=== PATIENT | female | born 2000 | race Caucasian/White ===

== ENCOUNTER 2022-12-17 12:03 | Emergency (ER) | payer OTHER ==
[2022-12-17 12:12] VITALS: RESP 18
--- NOTE | 2022-12-17 12:40 | XR ---
EXAMINATION TYPE: XR hand complete RT DATE OF EXAM: 12/17/2022 12:31 PM INDICATION: Patient age:Female; 22 years old; Reason for study: Thumb injury; PHH. COMPARISON: None TECHNIQUE: Frontal, lateral and oblique views of the right hand were obtained. FINDINGS: Normal alignment of the visualized joints. No acute osseous pathology is identified. No e vidence of soft tissue swelling. IMPRESSION: No acute osseous pathology.
--- NOTE | 2022-12-17 13:45 | ED ---
General Adult HPI - General Chief complaint: Extremity Injury, Upper Stated complaint: rt hand injury Time Seen by Provider: 12/17/22 13:08 Source: patient, RN notes reviewed, old records reviewed Mode of arrival: ambulatory Limitations: no limitations - History of Present Illness Initial comments: Patient is a 22-year-old female who fell at work earlier today. Fell somehow onto her right hand. She is complaining of right thumb pain. Presents for further evaluation. Denies any sensory deficits. Pain with movement of the right thumb. Denies any numbness. Denies any weakness. Endorses pain with movement of the right thumb. Denies any obvious skin changes or other injuries. Presents for further evaluation at this time. - Related Data Allergies Allergy/AdvReac Type Severity Reaction Status Date / Time amoxicillin Allergy Rash/Hives Verified 12/17/22 12:12 Review of Systems ROS Statement: Those systems with pertinent positive or pertinent negative responses have been documented in the HPI. Review of Systems: CONST: Denies fever EYES: Denies blurry vision ENT: Denies nasal congestion C/V: Denies Chest pain RESP: Denies shortness of breath GI: Denies abdominal pain : Denies dysuria SKIN: Denies rash. MSK: Endorses right thumb pain NEURO: Denies headache ROS Other: All systems not noted in ROS Statement are negative. Past Medical History Past Medical History: No Reported History History of Any Multi-Drug Resistant Organisms: None Reported Past Surgical History: No Surgical Hx Reported Past Psychological History: No Psychological Hx Reported Smoking Status: Never smoker Past Alcohol Use History: None Reported Past Drug Use History: None Reported General Exam - General Exam Comments Initial Comments: General: Appears in no acute distress. HEAD: Normal with no signs of head trauma. EYES: EOMI. ENT: Hearing grossly intact. RESPIRATORY: No respiratory distress. C/V: Regular rate and rhythm. ABD: Abdomen is nondistended. EXT: No obvious deformity. Reduced range of motion secondary to pain in her neck eminence which is tender on palpation. Neurovascular intact throughout. Normal approximation with him and fingers. No obvious deformity. SKIN: No rashes or lesions observed on exposed skin. NEURO: Alert and oriented. Limitations: no limitations Course Vital Signs 12/17/22 12:09 Temperature 98.3 F Pulse Rate 88 Respiratory 18 Rate Blood Pressure 129/84 O2 Sat by Pulse 99 Oximetry Medical Decision Making - Medical Decision Making Was pt. sent in by a medical professional or institution (EZEKIEL Mascorro, BALE OPENER, urgent care, hospital, or jail...) When possible be specific @ -No Did you speak to anyone other than the patient for history (EMS, parent, family, police, friend...)? What history was obtained from this source @ -No Did you review nursing and triage notes (agree or disagree)? Why? @ -I reviewed and agree with nursing and triage notes Were old charts reviewed (outside hosp., previous admission, EMS record, old EKG, old radiological studies, urgent care reports/EKG's, jail records)? Report findings @ -No old charts were reviewed Differential Diagnosis (chest pain, altered mental status, abdominal pain women, abdominal pain men, vaginal bleeding, weakness, fever, dyspnea, syncope, headache, dizziness, GI bleed, back pain, seizure, CVA, palpatations, mental health, musculoskeletal)? @ -Differential Musculoskeletal Muscular strain, contusion, ligament sprain, fracture, arthritis, septic arthritis, bursitis, cellulitis, muscle spasm, nerve compression, DVT, arterial occlusion, herpes zoster, electrolyte abnormality, tumor.... This is not meant to be in all inclusive list EKG interpreted by me (3pts min.). @ -As above X-rays interpreted by me (1pt min.). @ -X-rays of the right hand revealed no obvious bony traumatic injury. CT interpreted by me (1pt min.). @ -None done U/S interpreted by me (1pt. min.). @ -None done What testing was considered but not performed or refused? (CT, X-rays, U/S, labs)? Why? @ -None What meds were considered but not given or refused? Why? @ -Offered analgesic medications which were declined. Did you discuss the management of the patient with other professionals (professionals i.e. EZEKIEL Mascorro, BALE OPENER, lab, RT, psych nurse, social services, wool puller, teacher, radiation safety officer, foster care case manager)? Give summary @ -No Was smoking cessation discussed for >3mins.? @ -No Was critical care preformed (if so, how long)? @ -No Were there social determinants of health that impacted care today? How? (Homelessness, low income, unemployed, alcoholism, drug addiction, transportation, low edu. Level, literacy, decrease access to med. care, [place] [facility], rehab)? @ -No Was there de-escalation of care discussed even if they declined (Discuss DNR or withdrawal of care, Hospice)? DNR status @ -No What co-morbidities impacted this encounter? (DM, HTN, Smoking, COPD, CAD, Cancer, CVA, ARF, Chemo, Hep., AIDS, mental health diagnosis, sleep apnea, morbid obesity)? @ -None Was patient admitted / discharged? Hospital course, mention meds given and route, prescriptions, significant lab abnormalities, going to OR and other pertinent info. @ -Based on the patient's presentation and physical exam, I'm concerned for possible bony trending injury to the thumb versus sprain. X-rays were obtained while the patient was in triage were negative. I discussed results patient. She'll be given a Shaheed bandage, as well as strict return precautions. Discussed [id number] analgesic medications as well as icing. I did offer Motrin which was declined. Vital signs within acceptable limits. She'll be discharged home at this time. I instructed the patient to follow up with their PCP in the next 1-3 days. I provided contact information for follow up with orthopedic. I explained that the patient should return to the emergency department if they experience any worsening symptoms. Strict return precautions were discussed with the patient. The patient expressed understanding of these instructions. I answered all questions that the patient had. The patient was discharged home in good condition with their prescriptions and follow up information. Undiagnosed new problem with uncertain prognosis? @ -No Drug Therapy requiring intensive monitoring for toxicity (Heparin, Nitro, Insulin, Cardizem)? @ -No Were any procedures done? @ -No Diagnosis/symptom? @ -Fall, right thumb strain Acute, or Chronic, or Acute on Chronic? @ -Acute Uncomplicated (without systemic symptoms) or Complicated (systemic symptoms)? @ -Uncomplicated Side effects of treatment? @ -No Exacerbation, Progression, or Severe Exacerbation? @ -No Poses a threat to life or bodily function? How? (Chest pain, [place], [place], pneumonia, PE, COPD, DKA, ARF, appy, cholecystitis, CVA, Diverticulitis, Homicidal, Suicidal, threat to staff... and all critical care pts) @ -No Disposition Clinical Impression: Sprain of right thumb Disposition: HOME SELF-CARE Condition: Good Instructions (If sedation given, give patient instructions): Finger Sprain (ED) Is patient prescribed a controlled substance at d/c from ED?: No Referrals: None,Stated [Primary Care Provider] - 1-2 days Pascual Osuna DO [Doctor of Osteopathic Medicine] - 1-2 days Time of Disposition: 13:42
[2022-12-17 14:02] VITALS: BP 113/76; PULSE 74; TEMP 97.3
== END 2022-12-17 14:02 | disposition home or self-care (01) ==
LOC: EC 12:03
DX: S63.601A Unspecified sprain of right thumb, initial encounter (principal); Z88.0 Allergy status to penicillin; W19.XXXA Unspecified fall, initial encounter; Y99.0 Civilian activity done for income or pay
CPT/HCPCS: 99283

== ENCOUNTER → 2023-01-13 | Outpatient (CLI) | payer OTHER ==
--- NOTE | 2023-01-13 09:55 | US ---
EXAMINATION TYPE: Transabdominal DATE OF EXAM: 01/13/2023 9:06 AM COMPARISON: NONE CLINICAL INDICATION: Female, 22 years old with history of [id number] CONFIRM GEST AGE; confirm dates EXAM PERFORMED: Transabdominal (TA) EXAM MEASUREMENTS: GESTATIONAL AGE / DATING Dates by LMP: (13 weeks/6 days) EDC: 07/15/2023 Dates by Current Scan for: (13 weeks/4 days) EDC: 07/17/2023 MATERNAL ANATOMY Uterus: 16.5x6.9x9.6cm Right Ovary: 3.0x1.6x1.8cm Left Ovary: 2.7x2.0x1.9cm Post CDS / Adnexa: wnl Presence of free fluid: n/a Presence of corpus luteal cyst: n/a Presence of subchorionic bleed: n/a GESTATION / SURVEY CRL: 7.52 (13 weeks/4 days) Yolk Sac (normal less than 6mm): n/a Heart Rate: 159 bpm Rhythm: Normal IUP: Viable IUP Age Appropriate Anatomy Cord Insertion: Too early to visualize Limbs: Visualized Calvarium: Visualized Date of LMP: 10/08/2022 Beta HcG (if available): Not available at this time exam slightly limited by position and body habitus IMPRESSION: Single viable intrauterine as noted above.
== END | disposition home or self-care (01) ==
LOC: RADUSWWP 08:10
PROVIDERS: ATTEND Obstetrics & Gynecology
DX: Z36.89 Encounter for other specified antenatal screening (principal); Z3A.14 14 weeks gestation of pregnancy
CPT/HCPCS: 76801

== ENCOUNTER 2023-01-24 05:14 | Emergency (ER) | payer OTHER ==
[2023-01-24] MEDS ORDERED: SODIUM CHLORIDE 0.9% 500 ML 500 ML IV ONE (05:29)
--- NOTE | 2023-01-24 06:02 | ED ---
Female Urogenital HPI <Arleth Moses - Last Filed: 01/24/23 07:46> - General Source: patient, RN notes reviewed, old records reviewed Mode of arrival: ambulatory Limitations: no limitations - History of Present Illness MD Complaint: vaginal bleeding, other (Positive for ) -: unknown Location: suprapubic Radiation: non-radiating Consistency: intermittent Improves with: none Worsens with: none Patient : Yes Associated Symptoms: vaginal bleeding <Corwin Hi - Last Filed: 01/28/23 04:19> - General Chief complaint: Vaginal Bleeding Stated complaint: 15 WEEKS WITH SPOTTING Time Seen by Provider: 01/24/23 05:23 - History of Present Illness Initial comments: This is a 22-year-old female to the emergency department today. Patient presents today for evaluation regards to vaginal bleeding. Patient is vaginal bleeding of . Spotting noted this morning. Patient became very concerned presents here. Patient is a . Patient presents today for known history of with vaginal bleeding. She has had prior ultrasound confirming (Corwin Hi) - Related Data Allergies Allergy/AdvReac Type Severity Reaction Status Date / Time amoxicillin Allergy Rash/Hives Verified 12/17/22 12:12 hydrocodone Allergy Unknown Verified 01/24/23 05:17 Penicillins Allergy Unknown Verified 01/24/23 05:17 Review of Systems ROS Other: All systems not noted in ROS Statement are negative. <Arleth Moses - Last Filed: 01/24/23 07:46> ROS Other: All systems not noted in ROS Statement are negative. <Corwin Hi - Last Filed: 01/28/23 04:19> ROS Statement: Those systems with pertinent positive or pertinent negative responses have been documented in the HPI. Past Medical History Past Medical History: No Reported History History of Any Multi-Drug Resistant Organisms: None Reported Past Surgical History: Tonsillectomy Past Psychological History: No Psychological Hx Reported Smoking Status: Never smoker Past Alcohol Use History: None Reported Past Drug Use History: None Reported <Corwin Hi - Last Filed: 01/28/23 04:19> General Exam <Arleth Moses - Last Filed: 01/24/23 07:46> Limitations: no limitations General appearance: alert, in no apparent distress Head exam: Present: atraumatic, normocephalic, normal inspection Eye exam: Present: normal appearance, PERRL, EOMI. Absent: scleral icterus, conjunctival injection, periorbital swelling ENT exam: Present: normal exam, mucous membranes moist Neck exam: Present: normal inspection. Absent: tenderness, meningismus, lymphadenopathy Respiratory exam: Present: normal lung sounds bilaterally. Absent: respiratory distress, wheezes, rales, rhonchi, stridor Cardiovascular Exam: Present: regular rate, normal rhythm, normal heart sounds. Absent: systolic murmur, diastolic murmur, rubs, gallop, clicks GI/Abdominal exam: Present: soft, normal bowel sounds. Absent: distended, tenderness, guarding, rebound, rigid Extremities exam: Present: normal inspection, full ROM, normal capillary refill. Absent: tenderness, pedal edema, joint swelling, calf tenderness Back exam: Present: normal inspection Neurological exam: Present: alert, oriented X3, CN II-XII intact Psychiatric exam: Present: normal affect, normal mood Skin exam: Present: warm, dry, intact, normal color. Absent: rash <Corwin Hi - Last Filed: 01/28/23 04:19> - General Exam Comments Initial Comments: GENERAL: No acute distress, well developed, well nourished. Obese. HEENT: Normocephalic, atraumatic. Pupils equal, round, reactive to light. Moist mucous membranes. LUNGS: No respiratory distress or use of accessory muscles. HEART: Regular rate. ABDOMEN: Non-distended. BACK: Normal inspection. EXTREMITIES: No edema. No tenderness. Moves all extremities. NEUROLOGIC: Alert & oriented x 3. CN II-XII grossly intact. PSYCHIATRIC: Normal affect and behavior. DERMATOLOGIC: Skin intact, without rashes or lesions noted. (Arleth Moses) Course <Corwin Hi - Last Filed: 01/28/23 04:19> Vital Signs 01/24/23 01/24/23 05:17 08:04 Temperature 98.2 F 97.9 F Pulse Rate 80 72 Respiratory 18 19 Rate Blood Pressure 122/72 111/59 O2 Sat by Pulse 98 100 Oximetry - Reevaluation(s) Reevaluation #1: 01/24/23 06:01 Medical record is reviewed (Corwin Hi) Reevaluation #2: 01/24/23 06:01 Patient has no significant active bleeding here in the ER what (Corwin Hi) Reevaluation #3: Patient informed results questions answered (Corwin Hi) Reevaluation #4: 01/24/23 06:01 Was pt. sent in by a medical professional or institution (EZEKIEL Mascorro, COLD MILL INSPECTOR, urgent care, hospital, or snf...) When possible be specific @ -no Did you speak to anyone other than the patient for history (EMS, parent, family, police, friend...)? What history was obtained from this source @ -no Did you review nursing and triage notes (agree or disagree)? Why? @ -agree Are old charts reviewed (outside hosp., previous admission, EMS record, old EKG, old radiological studies, urgent care reports/EKG's, snf records)? Report findings @ -yes Differential Diagnosis (chest pain, altered mental status, abdominal pain women, abdominal pain men, vaginal bleeding, weakness, fever, dyspnea, syncope, heada yojana, dizziness, GI bleed, back pain, seizure, CVA, palpatations, mental health, musculoskeletal)? @ -prior EKG interpreted by me (3pts min.). @ -no X-rays interpreted by me (1pt min.). @ -no CT interpreted by me (1pt min.). @ -no U/S interpreted by me (1pt. min.). @ -yes What testing was considered but not performed or refused? (CT, X-rays, U/S, labs)? Why? @ -none What meds were considered but not given or refused? Why? @ -none Did you discuss the management of the patient with other professionals (professionals i.e. EZEKIEL Mascorro, COLD MILL INSPECTOR, lab, RT, psych nurse, social media designer, carriage feeder, teacher, toxics program officer, egg caser)? Give summary @ -no Was smoking cessation discussed for >3mins.? @ -no Was critical care preformed (if so, how long)? @ -no Were there social determinants of health that impacted care today? How? (Homelessness, low income, unemployed, alcoholism, drug addiction, trans portation, low edu. Level, literacy, decrease access to med. care, alf, rehab)? @ -none Was there de-escalation of care discussed even if they declined (Discuss DNR or withdrawal of care, Hospice)? DNR status @ -no What co-morbidities impacted this encounter? (DM, HTN, Smoking, COPD, CAD, Cancer, CVA, ARF, Chemo, Hep., AIDS, mental health diagnosis, sleep apnea, morbid obesity)? @ -none Was patient admitted / discharged? Hospital course, mention meds given and route, prescriptions, significant lab abnormalities, going to OR and other pertinent info. @ - 22 female with abdominal pain with vaginal spotting and . Patient has IUP proven here in the ER, patient has no significant acute bleeding or pain. Patient can be discharged home Discharged Undiagnosed new problem with uncertain prognosis? @ -no Drug Therapy requiring intensive monitoring for toxicity (Heparin, Nitro, Ins ulin, Cardizem)? @ -no Were any procedures done? @ -no Diagnosis/symptom? @ -Positive IUP Acute, or Chronic, or Acute on Chronic? @ -Acute Uncomplicated (without systemic symptoms) or Complicated (systemic symptoms)? @ -Complicated Side effects of treatment? @ -no Exacerbation, Progression, or Severe Exacerbation? @ -exacerbation Poses a threat to life or bodily function? How? (Chest pain, [place], [place], pneumonia, PE, COPD, DKA, ARF, appy, cholecystitis, CVA, Diverticulitis, Homicidal, Suicida l, threat to staff... and all critical care pts) @ -yes Ectopic (Corwin Hi) Reevaluation #5: 01/24/23 06:02 Differential Abdominal Pain Women: Appendicitis, Cholecystitis, diverticulosis, ischemic bowel, pancreatitis, h epatitis, UTI, gastroenteritis, AAA, incarcerated hernia, bowel obstruction, constipation, inflammatory bowel, hepatitis, peptic ulcer disease, splenic infarction, perforated viscus, vulvitis, ovarian torsion, PID, kidney stone, placenta abruption, this is not meant to be an all-inclusive list (Corwin Hi) Medical Decision Making - Lab Data Result diagrams: 01/24/23 06:10 01/24/23 06:10 - Radiology Data Radiology results: report reviewed, image reviewed <Arleth Moses - Last Filed: 01/24/23 07:46> - Lab Data Result diagrams: 01/24/23 06:10 01/24/23 06:10 - Radiology Data Radiology results: report reviewed (Ultrasound positive for IUP), image reviewed <Corwin Hi - Last Filed: 01/28/23 04:19> - Medical Decision Making Case received from Dr. Seo for disposition if normal ultrasound results and no further complications. Vaginal ultrasound results per radiologist shows single viable intrauterine without abnormalities noted. Estimated gestational age 15 weeks 2 days with heart tones identified at 142 bpm. No further spotting. Laboratory studies reveal normal CBC, normal coags slightly low sodium at 135, low chloride at 20, low BUN and creatinine at 6 and 0.51 respectively. Quantitative hCG 41,377.1. Blood type A+. These findings were discussed with patient and spouse at bedside. Questions and concerns answered. Return parameters to the emergency room discussed. Will discharge home in stable condition advising follow-up with OB specialist a nd continued monitoring of spotting that is affecting in her second trimester. (Arleth Moses) 22 female with abdominal pain with vaginal spotting and . Patient has IUP proven here in the ER, patient has no significant acute bleeding or pain. Patient can be discharged home (Corwin Hi) - Lab Data Lab Results 01/24/23 01/24/23 01/24/23 Range/Units 06:10 06:10 06:10 WBC 9.6 (3.8-10.6) k/uL RBC 4.73 (3.80-5.40) m/uL Hgb 13.7 (11.4-16.0) gm/dL Hct 40.2 (34.0-46.0) % MCV 84.9 (80.0-100.0) fL MCH 29.0 (25.0-35.0) pg MCHC 34.2 (31.0-37.0) g/dL RDW 12.8 (11.5-15.5) % Plt Count 280 (150-450) k/uL MPV 7.8 Neutrophils % 73 % Lymphocytes % 20 % Monocytes % 4 % Eosinophils % 1 % Basophils % 0 % Neutrophils # 7.0 (1.3-7.7) k/uL Lymphocytes # 2.0 (1.0-4.8) k/uL Monocytes # 0.4 (0-1.0) k/uL Eosinophils # 0.1 (0-0.7) k/uL Basophils # 0.0 (0-0.2) k/uL PT 10.1 (9.0-12.0) sec INR 0.9 (<1.2) APTT 23.7 (22.0-30.0) sec Sodium 135 L (137-145) mmol/L Potassium 3.6 (3.5-5.1) mmol/L Chloride 105 (98-107) mmol/L Carbon Dioxide 20 L (22-30) mmol/L Anion Gap 10 mmol/L BUN 6 L (7-17) mg/dL Creatinine 0.51 L (0.52-1.04) mg/dL Est GFR (CKD-EPI)AfAm >90 (>60 ml/min/1.73 sqM) Est GFR (CKD-EPI)NonAf >90 (>60 ml/min/1.73 sqM) Glucose 87 (74-99) mg/dL Calcium 8.7 (8.4-10.2) mg/dL Total Bilirubin 0.3 (0.2-1.3) mg/dL AST 20 (14-36) U/L ALT 27 (4-34) U/L Alkaline Phosphatase 58 (38-126) U/L Total Protein 6.5 (6.3-8.2) g/dL Albumin 3.5 (3.5-5.0) g/dL HCG, Quant 29197.1 mIU/mL Urine Color Urine Appearance (Clear) Urine pH (5.0-8.0) Ur Specific Cache (1.001-1.035) Urine Protein (Negative) Urine Glucose (UA) (Negative) Urine Ketones (Negative) Urine Blood (Negative) Urine Nitrite (Negative) Urine Bilirubin (Negative) Urine Urobilinogen (<2.0) mg/dL Ur Leukocyte Esterase (Negative) Blood Type Blood Type Recheck Bld Type Recheck Status 01/24/23 01/24/23 Range/Units 06:10 07:20 WBC (3.8-10.6) k/uL RBC (3.80-5.40) m/uL Hgb (11.4-16.0) gm/dL Hct (34.0-46.0) % MCV (80.0-100.0) fL MCH (25.0-35.0) pg MCHC (31.0-37.0) g/dL RDW (11.5-15.5) % Plt Count (150-450) k/uL MPV Neutrophils % % Lymphocytes % % Monocytes % % Eosinophils % % Basophils % % Neutrophils # (1.3-7.7) k/uL Lymphocytes # (1.0-4.8) k/uL Monocytes # (0-1.0) k/uL Eosinophils # (0-0.7) k/uL Basophils # (0-0.2) k/uL PT (9.0-12.0) sec INR (<1.2) APTT (22.0-30.0) sec Sodium (137-145) mmol/L Potassium (3.5-5.1) mmol/L Chloride (98-107) mmol/L Carbon Dioxide (22-30) mmol/L Anion Gap mmol/L BUN (7-17) mg/dL Creatinine (0.52-1.04) mg/dL Est GFR (CKD-EPI)AfAm (>60 ml/min/1.73 sqM) Est GFR (CKD-EPI)NonAf (>60 ml/min/1.73 sqM) Glucose (74-99) mg/dL Calcium (8.4-10.2) mg/dL Total Bilirubin (0.2-1.3) mg/dL AST (14-36) U/L ALT (4-34) U/L Alkaline Phosphatase (38-126) U/L Total Protein (6.3-8.2) g/dL Albumin (3.5-5.0) g/dL HCG, Quant mIU/mL Urine Color Colorless Urine Appearance Clear (Clear) Urine pH 6.0 (5.0-8.0) Ur Specific Cache 1.004 (1.001-1.035) Urine Protein Negative (Negative) Urine Glucose (UA) Negative (Negative) Urine Ketones Negative (Negative) Urine Blood Negative (Negative) Urine Nitrite Negative (Negative) Urine Bilirubin Negative (Negative) Urine Urobilinogen <2.0 (<2.0) mg/dL Ur Leukocyte Esterase Negative (Negative) Blood Type A Positive Blood Type Recheck No Previous Record Bld Type Recheck Status [facility] ONLY Disposition Is patient prescribed a controlled substance at d/c from ED?: No Time of Disposition: 07:51 <Arleth Moses - Last Filed: 01/24/23 07:46> <Corwin Hi - Last Filed: 01/28/23 04:19> Clinical Impression: Spotting affecting in second trimester Disposition: HOME SELF-CARE Condition: Stable Instructions (If sedation given, give patient instructions): at 15 to 18 Weeks (ED) Additional Instructions: Continue your premarital vitamins and restrictions per your ENERGY TRADER. Please follow-up with your ENERGY TRADER. Please return to the Emergency Department if symptoms worsen or any other concerns. Referrals: None,Stated [Primary Care Provider] - 1-2 days
[2023-01-24 06:31] LABS: Basophils % (A) 0 %; Eosinophils # (A) 0.1 k/uL (0-0.7); Eosinophils % (A) 1 %; HCT 40.2 % (34.0-46.0); HGB 13.7 gm/dL (11.4-16.0); Lymphocytes % (A) 20 %; MCHC 34.2 g/dL (31.0-37.0); MCV 84.9 fL (80.0-100.0); Mean Platelet Volume 7.8; Monocytes # (A) 0.4 k/uL (0-1.0); Monocytes % (A) 4 %; Neutrophils % (A) 73 %; Platelet Count 280 k/uL (150-450); RBC 4.73 m/uL (3.80-5.40); RDW 12.8 % (11.5-15.5); WBC 9.6 k/uL (3.8-10.6)
[2023-01-24 06:43] LABS: ALT 27 U/L (4-34); AST 20 U/L (14-36); African American GFR (CKD) >90 (>60 ml/min/1.73 sqM); Albumin 3.5 g/dL (3.5-5.0); Alkaline Phosphatase 58 U/L (38-126); Anion Gap 10 mmol/L; Blood Urea Nitrogen 6 mg/dL (7-17); Calcium 8.7 mg/dL (8.4-10.2); Carbon Dioxide 20 mmol/L (22-30); Chloride 105 mmol/L (98-107); Glucose 87 mg/dL (74-99); Non-African American GFR(CKD) >90 (>60 ml/min/1.73 sqM); Potassium 3.6 mmol/L (3.5-5.1); Sodium 135 mmol/L (137-145); Total Bilirubin 0.3 mg/dL (0.2-1.3); Total Protein 6.5 g/dL (6.3-8.2)
[2023-01-24 06:48] LABS: INR 0.9 (<1.2); Partial Thromboplastin Time 23.7 sec (22.0-30.0); Prothrombin Time 10.1 sec (9.0-12.0)
[2023-01-24 07:29] LABS: HCG,Quantitative Serum 41377.1 mIU/mL
--- NOTE | 2023-01-24 07:35 | US ---
EXAMINATION TYPE: US OB >= 14 wk fetus DATE OF EXAM: 01/24/2023 COMPARISON: US 01/13/2023 CLINICAL INDICATION: Female, 22 years old with history of ; Pt states spotting x 1 day TECHNIQUE: Transabdominal (TA) GESTATIONAL AGE / DATING Physician Established: (15 weeks/3 days) EDC: 07/15/2023 Dates by LMP: (15 weeks/3 days) EDC: 07/15/2023 Dates by First Scan: (15 weeks/1 days) EDC: 07/17/2023 Dates by Current Scan: (15 weeks/2 days) EDC: 07/16/2023 SURVEY IUP: Single PLACENTA: Posterior PREVIA: Low Lying [place]: Too early to calculate, however adequate amount of [place] visualized surrounding fetus CERVICAL LENGTH (transabdominal: norm > 3.0cm): 3.8 cm BIOMETRY PRESENTATION: Breech BPD: 2.9 cm 15 weeks / 1 days HC: 10.9 cm 15 weeks / 2 days AC: 9.2 cm 15 weeks / 3 days FL: 1.7 cm 15 weeks / 0 days ESTIMATED WEIGHT IN GRAMS: 117 grams ESTIMATED WEIGHT IN LBS/OZ: 0 lbs. 4 oz. WEIGHT PERCENTAGE BASED ON ESTABLISHED DATES: 23% HC/AC: 1.18 Normal FL/AC: 18 Normal HEART RATE: 142 bpm RHYTHM: Normal Single, viable IUP/ No abnormality visualized to account for pt's symptoms IMPRESSION: Single viable intrauterine gestation with estimated gestational age of 15 weeks 2 days and estimated due date of 07/16/2023.
[2023-01-24 07:37] LABS: Appearance,Urine Clear (Clear); Bilirubin,Urine Negative (Negative); Blood,Urine Negative (Negative); Color,Urine Colorless; Glucose,Urine (UA) Negative (Negative); Ketones,Urine Negative (Negative); Leukocyte Esterase,Urine Negative (Negative); Nitrite,Urine Negative (Negative); Protein,Urine Negative (Negative); Specific Gravity,Urine 1.004 (1.001-1.035); Urobilinogen,Urine <2.0 mg/dL (<2.0)
[2023-01-24 08:05] VITALS: BP 111/59; PULSE 72; RESP 19; TEMP 97.9
== END 2023-01-24 08:05 | disposition home or self-care (01) ==
LOC: EC 05:14
DX: O26.852 Spotting complicating pregnancy, second trimester (principal); Z3A.15 15 weeks gestation of pregnancy; Z88.0 Allergy status to penicillin; Z88.5 Allergy status to narcotic agent
CPT/HCPCS: 36415; 76805; 80053; 81003; 84702; 85025; 85610; 85730; 86900; 86901; 99284

== ENCOUNTER 2023-04-23 14:17 | Outpatient (CLI) | payer OTHER ==
[2023-04-23 15:42] LABS: Basophils % (A) 0 %; Eosinophils % (A) 1 %; HCT 33.1 % (34.0-46.0); HGB 11.3 gm/dL (11.4-16.0); Lymphocytes # (A) 1.8 k/uL (1.0-4.8); Lymphocytes % (A) 24 %; MCH 28.4 pg (25.0-35.0); MCHC 34.2 g/dL (31.0-37.0); Mean Platelet Volume 7.8; Monocytes # (A) 0.4 k/uL (0-1.0); Monocytes % (A) 5 %; Neutrophils # (A) 5.3 k/uL (1.3-7.7); Neutrophils % (A) 69 %; Platelet Count 323 k/uL (150-450); RBC 3.99 m/uL (3.80-5.40); RDW 13.2 % (11.5-15.5); WBC 7.7 k/uL (3.8-10.6)
[2023-04-23 15:55] LABS: ALT 45 U/L (4-34); AST 24 U/L (14-36); African American GFR (CKD) >90 (>60 ml/min/1.73 sqM); Blood Urea Nitrogen 7 mg/dL (7-17); LDH 236 U/L (120-246); Non-African American GFR(CKD) >90 (>60 ml/min/1.73 sqM); Uric Acid 2.1 mg/dL (3.7-7.4)
[2023-04-23 16:02] LABS: Appearance,Urine Clear (Clear); Bilirubin,Urine Negative (Negative); Blood,Urine Negative (Negative); Color,Urine Light Yellow; Glucose,Urine (UA) Negative (Negative); Ketones,Urine Negative (Negative); Leukocyte Esterase,Urine Negative (Negative); Nitrite,Urine Negative (Negative); PH, Urine 6.5 (5.0-8.0); Protein,Urine Negative (Negative); Specific Gravity,Urine 1.019 (1.001-1.035); Urobilinogen,Urine <2.0 mg/dL (<2.0)
[2023-04-23 16:18] LABS: Creatinine,Urine Random 116.6 mg/dL
[2023-04-23 16:49] VITALS: BP 100/57; PULSE 102; RESP 17; TEMP 96.8
--- NOTE | 2023-07-16 07:59 | P.MSEPDOC ---
Presenting Problems - Arrival Data Date of Arrival on Unit: 04/23/23 Time of Arrival on Unit: 14:20 Mode of Transport: Ambulatory - Complaint OB-Reason for Admission/Chief Complaint: Visual Disturbances, PIH, Dizziness Comment: r/o PIH Medical History - Information : 1 Para: 0 Term: 0 : 0 Abortions: Spontaneous or Elective: 0 Number of Living Children: 0 - Gestational Age Gestational Age by OBI (wks/days): 28 Weeks and 1 Days Review of Systems - Review of Systems Constitutional: No problems Breast: No problems ENT: No problems Cardiovascular: No problems Respiratory: No problems Gastrointestinal: No problems Genitourinary: No problems Musculoskeletal: No problems Neurological: Fainting Skin: No problems Vital Signs - Temperature Temperature: 96.8 F Temperature Source: Temporal Artery Scan - Pulse Pulse Oximetery Pulse Rate: 102 Pulse Assessment Method: Pulse Oximetry - Respirations Respiratory Rate: 17 Oxygen Delivery Method: Room Air O2 Sat by Pulse Oximetry: 99 - Blood Pressure Right Arm Sitting Blood Pressure: 100/57 Blood Pressure Mean: 71 Blood Pressure Source: Automatic Cuff Medical Screen Scoring - Assessment - Baby A Baseline FHR: 150 Heart Rate - NICHD Category: Category I (Normal) NST: Reactive Physician Notification - Physician Notified Physician Notified Date: 04/23/23 Physician Notified Time: 16:14 Physician: Talia Ramirez New Order Received: Yes - Notification Comment Comment: r/o PIH, pre-eclampsia at 28 weeks gest. B/P's wnl, ALT elevated, HGB and HCT low, labs will be re-evaluated by Dr Trejo at pt's appt on 04/28/23. Maternal Triage Index - Non-Urgent/Priority 4 Non-Urgent Priority 4: Yes Criteria Met for Priority 4: no s/s active labor Disposition - Disposition OB Disposition: Triage, Discharge to home, Written follow up instructions reviewed Discharge Date: 04/23/23 Discharge Time: 16:22 I agree with the RN Medical Screening Exam: Yes Case reviewed; plan agreed upon as documented in EMR&OBIX.: Yes Diagnosis: DIZZINESS AND GIDDINESS
== END 2023-04-23 16:20 | disposition home or self-care (01) ==
LOC: FBPOP 14:17
PROVIDERS: ATTEND Obstetrics & Gynecology
DX: Z53.9 Procedure and treatment not carried out, unspecified reason (principal)
CPT/HCPCS: 59025; 82570; 84156; 82565; 83615; 84450; 84460; 84520; 84550; 85025; 81003; G0463; 99215

== ENCOUNTER → 2023-06-01 | Outpatient (CLI) | payer OTHER ==
[2023-06-01 05:50] LABS: Appearance,Urine Cloudy (Clear); Bacteria,Urine Few /hpf; Bilirubin,Urine Negative (Negative); Blood,Urine Negative (Negative); Color,Urine Colorless; Glucose,Urine (UA) Negative (Negative); Ketones,Urine Negative (Negative); Leukocyte Esterase,Urine Small (Negative); Mucus,Urine Rare /hpf; Nitrite,Urine Negative (Negative); Protein,Urine Negative (Negative); RBC,Urine 2 /hpf (0-5); Squamous Epithelial Cell,Urine 12 /hpf (0-4); Urobilinogen,Urine <2.0 mg/dL (<2.0); WBC,Urine 3 /hpf (0-5)
[2023-06-01 07:53] VITALS: BP 110/64; PULSE 104; RESP 16; TEMP 96.6
--- NOTE | 2023-06-04 09:24 | P.MSEPDOC ---
Presenting Problems - Arrival Data Date of Arrival on Unit: 06/01/23 Time of Arrival on Unit: 06:05 Mode of Transport: Ambulatory - Complaint OB-Reason for Admission/Chief Complaint: Possible Onset of Labor, Pain Comment: pt. presents to triage due to possible contractions, pt. states lower back pain like a period cramp that radiates around to the front of her ABD, pt. also states she feels pressure like she needs to pee but is unable to, pt. states she has been drinking lots of water throughout the day, pt. denies having hx of UTI this , pt. states she was up walking alot yesturday Medical History - Information : 1 Para: 0 Term: 0 : 0 Abortions: Spontaneous or Elective: 0 Number of Living Children: 0 - Gestational Age Gestational Age by OBI (wks/days): 33 Weeks and 5 Days Review of Systems - Review of Systems Constitutional: No problems Breast: No problems ENT: No problems Cardiovascular: No problems Respiratory: No problems Gastrointestinal: No problems Genitourinary: No problems Musculoskeletal: No problems Neurological: No problems Skin: No problems Vital Signs - Temperature Temperature: 96.6 F Temperature Source: Temporal Artery Scan - Pulse Pulse Oximetery Pulse Rate: 104 Pulse Assessment Method: Pulse Oximetry - Respirations Respiratory Rate: 16 Oxygen Delivery Method: Room Air O2 Sat by Pulse Oximetry: 97 - Blood Pressure Right Arm Blood Pressure: 110/64 Blood Pressure Mean: 79 Blood Pressure Source: Automatic Cuff Medical Screen Scoring - Cervical Exam Membranes: Intact - Uterine Contractions Frequency From (mins): 0 Frequency To (mins): 0 - Assessment - Baby A Baseline FHR: 130 Heart Rate - NICHD Category: Category I (Normal) NST: Reactive Physician Notification - Physician Notified Physician Notified Date: 06/01/23 Physician Notified Time: 05:58 Physician: Belle Trejo New Order Received: Yes - Notification Comment Comment: Dr. Trejo ordered urinalysis and FFN and cervical check Maternal Triage Index - Urgent/Priority 2 Urgent Priority 2: Yes Provider Notified: Belle Trejo Provider Notified Time: 05:58 Criteria Met for Priority 2: pt. presents to triage due to possible co ntractions, pt. states lower back pain like a period cramp that radiates around to the front of her ABD, pt. also states she feels pressure like she needs to pee but is unable to, pt. states she has been drinking lots of water throughout the day, pt. denies having hx of UTI this , pt. states she was up walking alot yesterday. RN spoke with DR. Trejo on FBP unit regarding patients complaint,patients history and FHR cat1, no contractions per toco, patient states pain has subsided she has experienced two intermitent episodes of pain since arrival to triage and the pain was when she first arrived. Pain is now 0/10. Disposition - Disposition OB Disposition: Discharge to home Discharge Date: 06/01/23 Discharge Time: 06:05 I agree with the RN Medical Screening Exam: Yes Case reviewed; plan agreed upon as documented in EMR&OBIX.: Yes Diagnosis: FALSE LABOR BEFORE 37 COMPLETED WEEKS OF GEST, THIRD TRI
== END ==
LOC: FBPOP 04:45
PROVIDERS: ATTEND Obstetrics & Gynecology
DX: O47.03 False labor before 37 completed weeks of gestation, third trimester (principal); Z3A.33 33 weeks gestation of pregnancy; Z88.5 Allergy status to narcotic agent; Z88.0 Allergy status to penicillin
CPT/HCPCS: 59025; 81001; G0463; 99213

== ENCOUNTER 2023-06-10 19:23 | Emergency (ER) | payer OTHER ==
[2023-06-10] MEDS ORDERED: ONDANSETRON 4 MG/2 ML VIAL IVP STA (20:01)
[2023-06-10 20:02] VITALS: TEMP 97.8
--- NOTE | 2023-06-10 20:12 | ED ---
General Adult HPI - General Chief complaint: Nausea/Vomiting/Diarrhea Stated complaint: Vomiting Time Seen by Provider: 06/10/23 20:09 Source: patient, RN notes reviewed Mode of arrival: ambulatory Limitations: no limitations - History of Present Illness Initial comments: 22-year-old female at 35 weeks presents emergency department for evaluation of nausea and vomiting 2 days. She follows with Dr. Trejo. She denies any problems with this thus far. She denies history of elevated blood pressure. Denies any other current symptoms including abdominal cramping, vaginal bleeding, fever, chills, cough, congestion. - Related Data Home Medications Medication Instructions Recorded Confirmed Vit No.179/Iron/Folic 1 tab PO DAILY 06/01/23 06/01/23 [ Tablet] Previous Rx's Medication Instructions Recorded Cephalexin [Keflex] 500 mg PO BID #14 cap 06/10/23 Allergies Allergy/AdvReac Type Severity Reaction Status Date / Time amoxicillin Allergy Rash/Hives Verified 06/10/23 19:58 hydrocodone Allergy Vomiting Verified 06/10/23 19:58 Penicillins Allergy Rash/Hives Verified 06/10/23 19:58 Review of Systems ROS Statement: Those systems with pertinent positive or pertinent negative responses have been documented in the HPI. ROS Other: All systems not noted in ROS Statement are negative. Past Medical History Past Medical History: No Reported History History of Any Multi-Drug Resistant Organisms: None Reported Past Surgical History: Tonsillectomy Past Psychological History: No Psychological Hx Reported Smoking Status: Never smoker Past Alcohol Use History: None Reported Past Drug Use History: None Reported General Exam - General Exam Comments Initial Comments: Visual Physical Exam Vital signs reviewed General: Well-appearing, nontoxic, no acute distress. Head: Normocephalic, atraumatic Eyes: PERRLA, EOMI ENT: Airway patent Chest: Nonlabored breathing Skin: No visual rash, normal skin tone Neuro: Alert and oriented 3 Musculoskeletal: No gross abnormalities Limitations: no limitations General appearance: alert, in no apparent distress Head exam: Present: atraumatic, normocephalic, normal inspection Eye exam: Present: normal appearance, PERRL, EOMI. Absent: scleral icterus, conjunctival injection, periorbital swelling ENT exam: Present: normal exam, mucous membranes moist Neck exam: Present: normal inspection. Absent: tenderness, meningismus, lymphadenopathy Respiratory exam: Present: normal lung sounds bilaterally. Absent: respiratory distress, wheezes, rales, rhonchi, stridor Cardiovascular Exam: Present: regular rate, normal rhythm, normal heart sounds. Absent: systolic murmur, diastolic murmur, rubs, gallop, clicks GI/Abdominal exam: Present: soft, normal bowel sounds, other (palpable fundus below the sternum). Absent: distended, tenderness, guarding, rebound, rigid Extremities exam: Present: normal inspection, full ROM, normal capillary refill. Absent: tenderness, pedal edema, joint swelling, calf tenderness Back exam: Present: normal inspection Neurological exam: Present: alert, oriented X3 Psychiatric exam: Present: normal affect, normal mood Skin exam: Present: warm, dry, intact, normal color. Absent: rash Course Vital Signs 06/10/23 06/10/23 19:56 20:58 Temperature 97.8 F Pulse Rate 104 H 99 Respiratory 20 18 Rate Blood Pressure 141/82 97/58 O2 Sat by Pulse 94 L 98 Oximetry Medical Decision Making - Medical Decision Making Quick note preformed by Faye Viveros PA-C Was pt. sent in by a medical professional or institution (EZEKIEL Mascorro, REGIONAL SALES DIRECTOR, urgent care, hospital, or intermediate...) When possible be specific @ -No Did you speak to anyone other than the patient for history (EMS, parent, family, police, friend...)? What history was obtained from this source @ -No Did you review nursing and triage notes (agree or disagree)? Why? @ -I reviewed and agree with nursing and triage notes Were old charts reviewed (outside hosp., previous admission, EMS record, old EKG, old radiological studies, urgent care reports/EKG's, intermediate records)? Report findings @ -No old charts were reviewed Differential Diagnosis (chest pain, altered mental status, abdominal pain women, abdominal pain men, vaginal bleeding, weakness, fever, dyspnea, syncope, headache, dizziness, GI bleed, back pain, seizure, CVA, palpatations, mental health, musculoskeletal)? @ -not applicable EKG interpreted by me (3pts min.). @ -none X-rays interpreted by me (1pt min.). @ -None done CT interpreted by me (1pt min.). @ -None done U/S interpreted by me (1pt. min.). @ -None done What testing was considered but not performed or refused? (CT, X-rays, U/S, labs)? Why? @ -None What meds were considered but not given or refused? Why? @ -None Did you discuss the management of the patient with other professionals (professionals i.e. , PA, REGIONAL SALES DIRECTOR, lab, RT, psych nurse, transition social worker, drum sander setter, teacher, learning and development officer, shelter case manager)? Give summary @ -No Was smoking cessation discussed for >3mins.? @ -No Was critical care preformed (if so, how long)? @ -No Were there social determinants of health that impacted care today? How? (Homelessness, low income, unemployed, alcoholism, drug addiction, transp ortation, low edu. Level, literacy, decrease access to med. care, mcc, rehab)? @ -No Was there de-escalation of care discussed even if they declined (Discuss DNR or withdrawal of care, Hospice)? DNR status @ -No What co-morbidities impacted this encounter? (DM, HTN, Smoking, COPD, CAD, Cancer, CVA, ARF, Chemo, Hep., AIDS, mental health diagnosis, sleep apnea, morbid obesity)? @ -None Was patient admitted / discharged? Hospital course, mention meds given and route, prescriptions, significant lab abnormalities, going to OR and other pertinent info. @ -discharged. 22-year-old female at 35 weeks presents to the emergency department for evaluation of nausea, vomiting. Denies abdominal pain, vaginal bleeding. Patient given a liter fluids and Zofran which improved her symptoms and the emergency department. Laboratory studies obtained. CBC showed WBC 9.2, hemoglobin 10.4; CMP shows sodium 136, troponin 0.7; UA shows trace protein, large leukocyte esterase, 16 WBCs. Protein likely due to mild dehydration from nausea and vomiting. Initial vital signs show blood pressure 141/82, recheck 97/58. She given Zofran starter pack for at home. Patient understanding and agreeable with discharge plan. Patient stable at discharge. Case discussed with Dr. Peña Undiagnosed new problem with uncertain prognosis? @ -No Drug Therapy requiring intensive monitoring for toxicity (Heparin, Nitro, Insulin, Cardizem)? @ -No Were any procedures done? @ -No Diagnosis/symptom? @ -nausea and vomiting in Acute, or Chronic, or Acute on Chronic? @ -acute Uncomplicated (without systemic symptoms) or Complicated (systemic symptoms)? @ -uncomplicated Side effects of treatment? @ -No Exacerbation, Progression, or Severe Exacerbation? @ -No Poses a threat to life or bodily function? How? (Chest pain, USA, NC, pneumonia, PE, COPD, DKA, ARF, appy, cholecystitis, CVA, Diverticulitis, Homicidal, Suicidal, threat to staff... and all critical care pts) @ -No - Lab Data Result diagrams: 06/10/23 20:01 06/10/23 20:01 Lab Results 06/10/23 06/10/23 06/10/23 Range/Units 20: 20: 20:01 WBC 9.2 (3.8-10.6) k/uL RBC 4.15 (3.80-5.40) m/uL Hgb 10.4 L (11.4-16.0) gm/dL Hct 31.3 L (34.0-46.0) % MCV 75.3 L D (80.0-100.0) fL MCH 25.1 (25.0-35.0) pg MCHC 33.3 (31.0-37.0) g/dL RDW 14.2 (11.5-15.5) % Plt Count 311 (150-450) k/uL MPV 8.9 Neutrophils % 73 % Lymphocytes % 20 % Monocytes % 5 % Eosinophils % 1 % Basophils % 0 % Neutrophils # 6.7 (1.3-7.7) k/uL Lymphocytes # 1.8 (1.0-4.8) k/uL Monocytes # 0.5 (0-1.0) k/uL Eosinophils # 0.1 (0-0.7) k/uL Basophils # 0.0 (0-0.2) k/uL Hypochromasia Slight Poikilocytosis Slight Microcytosis Slight Sodium 136 L (137-145) mmol/L Potassium 3.7 (3.5-5.1) mmol/L Chloride 110 H (98-107) mmol/L Carbon Dioxide 20 L (22-30) mmol/L Anion Gap 6 mmol/L BUN 4 L (7-17) mg/dL Creatinine 0.44 L (0.52-1.04) mg/dL Est GFR (CKD-EPI)AfAm >90 (>60 ml/min/1.73 sqM) Est GFR (CKD-EPI)NonAf >90 (>60 ml/min/1.73 sqM) Glucose 101 H (74-99) mg/dL Calcium 8.9 (8.4-10.2) mg/dL Magnesium 1.7 (1.6-2.3) mg/dL Total Bilirubin 0.3 (0.2-1.3) mg/dL AST 18 (14-36) U/L ALT 20 (4-34) U/L Alkaline Phosphatase 130 H (38-126) U/L Lactate Dehydrogenase 179 (120-246) U/L Total Protein 6.0 L (6.3-8.2) g/dL Albumin 3.1 L (3.5-5.0) g/dL Urine Color Light Yellow Urine Appearance Cloudy H (Clear) Urine pH 7.5 (5.0-8.0) Ur Specific [place] 1.012 (1.001-1.035) Urine Protein Trace H (Negative) Urine Glucose (UA) Negative (Negative) Urine Ketones Negative (Negative) Urine Blood Negative (Negative) Urine Nitrite Negative (Negative) Urine Bilirubin Negative (Negative) Urine Urobilinogen <2.0 (<2.0) mg/dL Ur Leukocyte Esterase Large H (Negative) Urine RBC 3 (0-5) /hpf Urine WBC 16 H (0-5) /hpf Ur Squamous Epith Cells 29 H (0-4) /hpf Urine Bacteria Many H (None) /hpf Urine Mucus Rare H (None) /hpf Disposition Clinical Impression: Nausea and vomiting in Disposition: HOME SELF-CARE Condition: Stable Instructions (If sedation given, give patient instructions): Acute Nausea and Vomiting (ED) Additional Instructions: Please follow up with your PLAN REP. Return to the emergency department for new or worsening symptoms. Prescriptions: Cephalexin [Keflex] 500 mg PO BID #14 cap Is patient prescribed a controlled substance at d/c from ED?: No Referrals: None,Stated [Primary Care Provider] - 1-2 days
[2023-06-10 20:22] LABS: Basophils % (A) 0 %; Eosinophils # (A) 0.1 k/uL (0-0.7); Eosinophils % (A) 1 %; HCT 31.3 % (34.0-46.0); HGB 10.4 gm/dL (11.4-16.0); Hypochromasia Slight; Lymphocytes # (A) 1.8 k/uL (1.0-4.8); Lymphocytes % (A) 20 %; MCH 25.1 pg (25.0-35.0); MCHC 33.3 g/dL (31.0-37.0); Mean Platelet Volume 8.9; Microcytosis Slight; Monocytes # (A) 0.5 k/uL (0-1.0); Monocytes % (A) 5 %; Neutrophils # (A) 6.7 k/uL (1.3-7.7); Neutrophils % (A) 73 %; Platelet Count 311 k/uL (150-450); Poikilocytosis Slight; RBC 4.15 m/uL (3.80-5.40); RDW 14.2 % (11.5-15.5); WBC 9.2 k/uL (3.8-10.6)
[2023-06-10 20:24] LABS: MCV 75.3 fL (80.0-100.0)
[2023-06-10 20:29] LABS: ALT 20 U/L (4-34); AST 18 U/L (14-36); African American GFR (CKD) >90 (>60 ml/min/1.73 sqM); Albumin 3.1 g/dL (3.5-5.0); Alkaline Phosphatase 130 U/L (38-126); Anion Gap 6 mmol/L; Appearance,Urine Cloudy (Clear); Bacteria,Urine Many /hpf; Bilirubin,Urine Negative (Negative); Blood Urea Nitrogen 4 mg/dL (7-17); Blood,Urine Negative (Negative); Calcium 8.9 mg/dL (8.4-10.2); Carbon Dioxide 20 mmol/L (22-30); Chloride 110 mmol/L (98-107); Color,Urine Light Yellow; Glucose 101 mg/dL (74-99); Glucose,Urine (UA) Negative (Negative); Ketones,Urine Negative (Negative); LDH 179 U/L (120-246); Leukocyte Esterase,Urine Large (Negative); Magnesium 1.7 mg/dL (1.6-2.3); Mucus,Urine Rare /hpf; Nitrite,Urine Negative (Negative); Non-African American GFR(CKD) >90 (>60 ml/min/1.73 sqM); PH, Urine 7.5 (5.0-8.0); Potassium 3.7 mmol/L (3.5-5.1); Protein,Urine Trace (Negative); RBC,Urine 3 /hpf (0-5); Sodium 136 mmol/L (137-145); Specific Gravity,Urine 1.012 (1.001-1.035); Squamous Epithelial Cell,Urine 29 /hpf (0-4); Total Bilirubin 0.3 mg/dL (0.2-1.3); Urobilinogen,Urine <2.0 mg/dL (<2.0); WBC,Urine 16 /hpf (0-5)
[2023-06-10] MEDS ORDERED: SODIUM CHLORIDE 0.9% 1,000 ML IV ONE (21:00)
[2023-06-10 21:05] VITALS: BP 97/58; PULSE 99; RESP 18
[2023-06-10] MEDS ORDERED: ONDANSETRON 4 MG ODT STARTER PACK 2 TAB BTL PO STA (21:34)
== END 2023-06-10 21:52 | disposition home or self-care (01) ==
LOC: EC 19:23
DX: O21.9 Vomiting of pregnancy, unspecified (principal); Z88.0 Allergy status to penicillin; Z88.8 Allergy status to other drugs, medicaments and biological substances; Z3A.35 35 weeks gestation of pregnancy
CPT/HCPCS: 36415; 80053; 83615; 83735; 85025; 81001; 99284; 96374; 96361; J2405; S0119

== ENCOUNTER 2023-07-10 05:49 | Inpatient (IN) | payer OTHER ==
--- NOTE | 2023-07-09 17:29 | P.HPOB ---
History of Present Illness H&P Date: 07/09/23 Chief Complaint: Induction of labor This is a 22-year-old female 1 para 0 with an estimated date of confinement of 07/15/2023, estimated gestational age of 39-2/7 weeks, who presents to labor and delivery for induction of labor. She does complain of frequent contractions and pressure. She also complains of lower back pain. She did have 1 episode of some spotting at around 16 weeks. This did resolve. labs: Maternity [id number], male Hemoglobin-12.9 HIV-nonreactive Toxoplasma-negative Hepatitis C-nonreactive Random glucose-79 Antibody screen-negative Hepatitis B surface antigen-negative 1 hour Glucola-138, 3-hour Glucola-within normal limits Group B streptococcus-negative Obstetrical history: . Gynecologic history: No history of sexually transmitted diseases. Social history: She is . She works at [employer]. Review of Systems Constitutional: Denies chills, Denies fever Eyes: denies blurred vision, denies pain Ears, nose, mouth and throat: Denies headache, Denies sore throat Cardiovascular: Denies chest pain, Denies shortness of breath Respiratory: Denies cough Gastrointestinal: Reports abdominal pain (Irregular contractions) Genitourinary: Reports pelvic pain, Reports Musculoskeletal: Reports low back pain Integumentary: Denies pruritus, Denies rash Neurological: Denies numbness, Denies weakness Psychiatric: Denies anxiety, Denies depression Past Medical History Past Medical History: No Reported History History of Any Multi-Drug Resistant Organisms: None Reported Past Surgical History: Tonsillectomy Additional Past Surgical History / Comment(s): Pilonidal cystectomy Past Anesthesia/Blood Transfusion Reactions: No Reported Reaction Past Psychological History: No Psychological Hx Reported Smoking Status: Former smoker, Vaper Past Alcohol Use History: None Reported Past Drug Use History: None Reported - Past Family History Father Family Medical History: No Reported History Medications and Allergies Home Medications Medication Instructions Recorded Confirmed Type Vit No.179/Iron/Folic 1 tab PO DAILY 06/01/23 07/07/23 History [ Tablet] Allergies Allergy/AdvReac Type Severity Reaction Status Date / Time amoxicillin Allergy Rash/Hives Verified 07/07/23 08:38 hydrocodone Allergy Vomiting Verified 07/07/23 08:38 Penicillins Allergy Rash/Hives Verified 07/07/23 08:38 Exam Osteopathic Statement: *. No significant issues noted on an osteopathic structural exam other than those noted in the History and Physical/Consult. HEENT: Within normal limits Lungs: Clear to auscultation bilaterally Heart: Regular rate and rhythm Abdomen: Cervix: 1-1/2 cm / 70 to 80%/-2 station heart tones: 130s by Doppler Extremities: Negative Homans Assessment and Plan (1) 39 weeks gestation of Status: Acute Code(s): Z3A.39 - 39 WEEKS GESTATION OF SNOMED Code(s): 79010537 Plan: Proceed with oxytocin induction of labor. Expectant management. Epidural anesthesia if desired.
[2023-07-10] MEDS ORDERED: OXYTOCIN 30 UNITS/500 ML NS 30 UNIT in SALINE 1 500ML.BAG IV SCH (06:08)
[2023-07-10] MEDS ORDERED: CARBOPROST TROMETHAMINE 250 MCG/ML 1 ML AMP IM PRN (06:08)
[2023-07-10] MEDS ORDERED: OXYTOCIN 10 UNIT/ML 1 ML VIAL IM PRN (06:08)
[2023-07-10] MEDS ORDERED: TRANEXAMIC 1,000 MG/100ML-NACL 1,000 MG in EMPTY BAG 1 BAG IV PRN (06:08)
[2023-07-10] MEDS ORDERED: TERBUTALINE 1 MG/ML VIAL SQ PRN (06:08)
[2023-07-10] MEDS ORDERED: METHYLERGONOVINE 0.2 MG/ML 1 ML AMP IM PRN (06:08)
[2023-07-10] MEDS ORDERED: miSOPROStoL 200 MCG TAB PO PRN (06:08)
[2023-07-10] MEDS ORDERED: LIDOCAINE 1% (10MG/ML) FOR IV START INTRADERMA PRN (06:08)
[2023-07-10] MEDS: OXYTOCIN 30 UNITS/500 ML NS 30 UNIT in SALINE 1 500ML.BAG IV SCH (06:30)
[2023-07-10] MEDS: LACTATED RINGERS 1,000 ML IV SCH (06:31)
[2023-07-10 06:40] LABS: Anisocytosis Slight; Basophils % (A) 0 %; Eosinophils # (A) 0.1 k/uL (0-0.7); Eosinophils % (A) 1 %; HCT 30.6 % (34.0-46.0); HGB 9.8 gm/dL (11.4-16.0); Hypochromasia Moderate; Lymphocytes # (A) 0.9 k/uL (1.0-4.8); Lymphocytes % (A) 13 %; MCH 23.1 pg (25.0-35.0); MCHC 31.9 g/dL (31.0-37.0); MCV 72.3 fL (80.0-100.0); Mean Platelet Volume 9.2; Microcytosis Moderate; Monocytes # (A) 0.3 k/uL (0-1.0); Monocytes % (A) 5 %; Neutrophils % (A) 78 %; Platelet Count 252 k/uL (150-450); Poikilocytosis Slight; RBC 4.23 m/uL (3.80-5.40); WBC 6.3 k/uL (3.8-10.6)
[2023-07-10] MEDS: NALBUPHINE 10 MG/ML (10 ML MDV) IV PRN (10:01)
[2023-07-10] MEDS ORDERED: ROPIVACAINE 5 MG/ML 30 ML VIAL ONE (13:16)
[2023-07-10] MEDS ORDERED: SODIUM CHLORIDE 0.9% 250 ML BAG ONE (13:16)
[2023-07-10] MEDS ORDERED: fentaNYL (PF) 50 MCG/ML 5 ML AMP ONE (13:16)
[2023-07-10] MEDS: LIDOCAINE 0.5% (PF) 5 MG/ML (50 ML SDV) SQ PRN (23:57)
--- NOTE | 2023-07-11 00:30 | P.PROBDLV ---
Vaginal Delivery Note - . Vaginal Delivery Note: The patient progressed to complete dilation slowly after oxytocin induction of labor and artificial rupture of membranes with clear fluid noted. She did receive epidural anesthesia. This had to be replaced when she was about 7 cm since it was ineffective. A second epidural did work much better. She slowly progressed to complete and then began pushing. 's head came to a crown. With one further push, the 's head delivered across the perineum and then with both legs flexed the anterior shoulder delivered followed by the remainder the baby. Body cord times one was reduced around the body after delivery and terminal meconium was noted. Infant was placed on mother's abdomen and nose and mouth were bulb suctioned. Cord was clamped and cut and then infant was taken to warmer for evaluation. A viable male is noted with scores of 7 at 1 minute and 7 at 5 minutes and infant weight of 8 pounds 3.4 ounces. Placenta was not ready to separate and therefore inspection of the perineum revealed a second-degree perineal laceration. This area was anesthetized with 1% lidocaine and then sutured with 30 and 2-0 Vicryl suture in the usual multilayer fashion. There was noted to be an abrasion above the clitoris area but this was not bleeding. After about 25 minutes the placenta still had not and therefore manual placental extraction was performed. Placenta was noted to be slightly adherent. After the placenta was manually removed several blood clots were removed with a gloved hand and no further placental tissue was palpated. Estimated blood loss is approximately 250 mL's. Mother is in stable condition. is taken to level I nursery for observation.
[2023-07-11] MEDS ORDERED: diphenhydrAMINE 25 MG CAP PO PRN (01:54)
[2023-07-11] MEDS ORDERED: ZOLPIDEM 5 MG TAB PO PRN (01:54)
[2023-07-11] MEDS ORDERED: SIMETHICONE 80 MG CHEWABLE PO PRN (01:54)
[2023-07-11] MEDS ORDERED: HYDROCORTISONE 2.5% RECTAL CREAM 30 GM TUBE RECTAL PRN (01:54)
[2023-07-11] MEDS ORDERED: LANOLIN CREAM 5 GM TUBE TOPICAL PRN (01:54)
[2023-07-11] MEDS ORDERED: BENZOCAINE/MENTHOL SPRAY 1 GM/SPRAY AEROSOL TOPICAL PRN (01:54)
[2023-07-11] MEDS ORDERED: diphenhydrAMINE 50 MG/ML 1 ML VIAL IVP PRN ×2 (01:54)
[2023-07-11] MEDS ORDERED: OXYTOCIN 30 UNITS/500 ML NS 30 UNIT in SALINE 1 500ML.BAG IV SCH (01:54)
[2023-07-11] MEDS: IBUPROFEN 600 MG TAB PO PRN (02:21)
[2023-07-11 03:32] LABS: Creatinine,Urine Random 103.7 mg/dL; Protein/Creatinine Ratio,Urine 0.559
[2023-07-11] MEDS: ACETAMINOPHEN TAB 325 MG TAB PO PRN (04:21)
[2023-07-11 04:31] LABS: Anisocytosis Slight; Basophils % (A) 0 %; Eosinophils % (A) 0 %; HCT 30.4 % (34.0-46.0); HGB 9.8 gm/dL (11.4-16.0); Hypochromasia Marked; Lymphocytes # (A) 1.7 k/uL (1.0-4.8); Lymphocytes % (A) 9 %; MCH 23.2 pg (25.0-35.0); MCHC 32.2 g/dL (31.0-37.0); MCV 72.1 fL (80.0-100.0); Mean Platelet Volume 9.5; Microcytosis Moderate; Monocytes # (A) 0.8 k/uL (0-1.0); Monocytes % (A) 5 %; Neutrophils # (A) 15.4 k/uL (1.3-7.7); Neutrophils % (A) 85 %; Platelet Count 318 k/uL (150-450); Poikilocytosis Slight; RBC 4.21 m/uL (3.80-5.40); RDW 16.2 % (11.5-15.5); WBC 18.1 k/uL (3.8-10.6)
[2023-07-11 04:41] LABS: ALT 29 U/L (4-34); AST 28 U/L (14-36); African American GFR (CKD) >90 (>60 ml/min/1.73 sqM); Blood Urea Nitrogen 4 mg/dL (7-17); LDH 267 U/L (120-246); Magnesium 1.6 mg/dL (1.6-2.3); Non-African American GFR(CKD) >90 (>60 ml/min/1.73 sqM); Uric Acid 4.7 mg/dL (3.7-7.4)
[2023-07-11 04:54] LABS: INR 0.9 (<1.2); Prothrombin Time 10.4 sec (10.0-12.5)
[2023-07-11 08:38] LABS: Appearance,Urine Clear (Clear); Bilirubin,Urine Negative (Negative); Blood,Urine Moderate (Negative); Color,Urine Yellow; Glucose,Urine (UA) Negative (Negative); Ketones,Urine 3+ (Negative); Leukocyte Esterase,Urine Negative (Negative); Mucus,Urine Occasional /hpf; Nitrite,Urine Negative (Negative); Protein,Urine 1+ (Negative); RBC,Urine 16 /hpf (0-5); Specific Gravity,Urine 1.014 (1.001-1.035); Squamous Epithelial Cell,Urine <1 /hpf (0-4); Urobilinogen,Urine <2.0 mg/dL (<2.0); WBC,Urine 4 /hpf (0-5)
--- NOTE | 2023-07-11 10:07 | P.PNOBGVD ---
Subjective - Subjective Principal diagnosis: Status post vaginal delivery day #1 Interval history: Patient is doing okay. She is still having some congestion. She was diagnosed with influenza a yesterday. She denies any fevers. Lochia is decreasing. Her pain is fairly well controlled with ibuprofen and Tylenol. Baby is in level I nursery. She does plan to try to breast-feed. Patient reports: Reports appetite normal, Reports voiding normally, Reports pain well controlled, Reports ambulating normally : other (In level I nursery) Objective - Latest Vital Signs Latest vital signs: Vital Signs Temp Pulse Resp BP Pulse Ox 07/11/23 04:20 133 H 16 119/58 07/11/23 03:24 137 H 130/61 07/11/23 03:09 133 H 15 133/68 07/11/23 02:40 133 H 16 129/59 07/11/23 02:20 99.4 F 133 H 15 159/80 07/11/23 02:05 136 H 16 139/76 07/11/23 01:50 121 H 16 152/83 07/11/23 01:35 121 H 16 152/83 95 07/11/23 01:20 130 H 16 148/75 07/11/23 01:05 126 H 16 142/66 07/11/23 00:50 98.2 F 16 138/68 98 07/11/23 00:35 130 H 16 131/63 07/11/23 00:20 98.7 F 130 H 16 130/65 Intake and Output 07/10/23 07/11/23 07/11/23 22:59 06:59 14:59 Output Total 841 Balance -841 Output: Urine 500 Straight 500 Estimated Blood Loss 250 Output, Quantitative 91 Blood Loss Other: # Voids 0 1 - Exam Extremities: Present: normal. Absent: tenderness Abdomen: Present: normal appearance, soft. Absent: distention, tenderness Uterus: Present: normal, firm. Absent: tenderness - Labs Labs: Abnormal Lab Results - Last 24 Hours (Table) 07/11/23 07/11/23 07/11/23 Range/Units 02:50 02:50 03:51 WBC 18.1 H (3.8-10.6) k/uL Hgb 9.8 L (11.4-16.0) gm/dL Hct 30.4 L (34.0-46.0) % MCV 72.1 L (80.0-100.0) fL MCH 23.2 L (25.0-35.0) pg RDW 16.2 H (11.5-15.5) % Neutrophils # 15.4 H (1.3-7.7) k/uL Fibrinogen (200-500) mg/dL BUN (7-17) mg/dL Lactate Dehydrogenase (120-246) U/L Urine Protein 1+ H (Negative) Urine Ketones 3+ H (Negative) Urine Blood Moderate H (Negative) Urine RBC 16 H (0-5) /hpf Urine Mucus Occasional H (None) /hpf Influenza Type A (PCR) Detected A (Not Detectd) 07/11/23 07/11/23 Range/Units 03:51 03:51 WBC (3.8-10.6) k/uL Hgb (11.4-16.0) gm/dL Hct (34.0-46.0) % MCV (80.0-100.0) fL MCH (25.0-35.0) pg RDW (11.5-15.5) % Neutrophils # (1.3-7.7) k/uL Fibrinogen 577 H (200-500) mg/dL BUN 4 L (7-17) mg/dL Lactate Dehydrogenase 267 H (120-246) U/L Urine Protein (Negative) Urine Ketones (Negative) Urine Blood (Negative) Urine RBC (0-5) /hpf Urine Mucus (None) /hpf Influenza Type A (PCR) (Not Detectd) Assessment and Plan Assessment: Status post vaginal delivery day #1 Influenza A-symptoms began 5 days ago (1) 39 weeks gestation of Current Visit: No Status: Acute Code(s): Z3A.39 - 39 WEEKS GESTATION OF SNOMED Code(s): 17968940 Plan: Continue with care today. Will give Zyrtec for congestion symptoms. Continue isolation due to influenza
[2023-07-11] MEDS: PRENATAL VIT-IRON-FOLIC ACID 1 EACH TABLET PO SCH (17:20)
[2023-07-11] MEDS: SENNOSIDES-DOCUSATE SODIUM 1 EACH TAB PO SCH (17:20)
[2023-07-11] MEDS: LORATADINE 10 MG TAB PO SCH (17:21)
[2023-07-12] MEDS: diphenhydrAMINE 50 MG CAP PO PRN (04:47)
[2023-07-12 05:08] LABS: Anisocytosis Slight; Basophils % (A) 0 %; Eosinophils # (A) 0.1 k/uL (0-0.7); Eosinophils % (A) 0 %; HCT 26.6 % (34.0-46.0); HGB 8.5 gm/dL (11.4-16.0); Hypochromasia Marked; Lymphocytes # (A) 2.6 k/uL (1.0-4.8); Lymphocytes % (A) 19 %; MCH 23.3 pg (25.0-35.0); MCHC 32.1 g/dL (31.0-37.0); MCV 72.7 fL (80.0-100.0); Mean Platelet Volume 8.1; Microcytosis Moderate; Monocytes # (A) 0.7 k/uL (0-1.0); Monocytes % (A) 5 %; Neutrophils # (A) 10.1 k/uL (1.3-7.7); Neutrophils % (A) 74 %; Platelet Count 223 k/uL (150-450); Poikilocytosis Slight; RBC 3.65 m/uL (3.80-5.40); RDW 16.4 % (11.5-15.5); WBC 13.7 k/uL (3.8-10.6)
[2023-07-12 09:04] VITALS: BP 128/69; PULSE 78; RESP 18; TEMP 98.2
--- NOTE | 2023-07-12 11:27 | P.DS ---
Providers Date of admission: 07/10/23 05:49 Expected date of discharge: 07/12/23 Attending physician: Belle Trejo Primary care physician: Stated None - Discharge Diagnosis(es) (1) 39 weeks gestation of Current Visit: No Status: Acute Hospital Course: This is a 22-year-old female 1 para 0 at 39-2/7 weeks who presented for induction of labor. She underwent oxytocin induction of labor and delivered a viable male on 07/10/2023 with scores of 7 at 1 minute and 7 at 5 minutes and weight of 8 pounds 3.4 ounces. Her first epidural was not working well and she did receive a second epidural when she was about 7 cm. After delivery, she continued to cough and stated that she had cold-like symptoms since 07/06/2023. She was tested for Covid and influenza. Her testing did show positive for influenza A. The father of the baby did go to ER and tested negative. Patient currently is feeling better after taking antih istamines. Her white count has come down and her lactic acid has returned to normal. She states her breathing is much better now. Unfortunately she has been unable to visit her baby in the nursery due to her influenza diagnosis. She is bottle feeding at this time. Her vital signs are stable. Abdomen is soft with fundus firm and nontender. Extremities show negative Homans. Impression is status post vaginal delivery day #2. Plan is to discharge home today. Routine postoperative and instructions are given. She will follow-up in the office in approximately 4-6 weeks for a check. She is advised to call the office if she has any further questions or concerns prior to her appointment time. She will be given a prescription for ibuprofen. Procedures: Oxytocin induction of labor Spontaneous vaginal delivery of a viable male infant on 07/10/2023 Patient Condition at Discharge: Stable Plan - Discharge Summary New Discharge Prescriptions: New Ibuprofen [Motrin] 600 mg PO Q6HR PRN #60 tab PRN Reason: Mild Pain (Scale 1 To 3) Continue Vit No.179/Iron/Folic [ Tablet] 1 tab PO DAILY Discharge Medication List Vit No.179/Iron/Folic [ Tablet] 1 tab PO DAILY 06/01/23 [History] Ibuprofen [Motrin] 600 mg PO Q6HR PRN #60 tab 07/12/23 [Rx] Follow up Appointment(s)/Referral(s): Belle Trejo DO [Doctor of Osteopathic Medicine] - 08/06/23 11:30 am Activity/Diet/Wound Care/Special Instructions: Instructions 1. Do not begin any exercise program for 3 weeks. 2. Do not resume sexual relations for 3 weeks or longer if uncomfortable. 3. You may take tub baths or showers at any time. 4. You may use tampons if desired after 3 weeks. 5. Keep the area of episiotomy (stitches) clean and dry. 6. If you are not nursing, wear a good fitting, supportive bra during the day and limit fluid intake for at least 1 week to prevent breast engorgement. 7. Call the office, [phone], within the next week to make appointment for your 6 week checkup if it has not already been made. 8. Report any of the following occurrences to the doctor promptly: a. Heavy, excessive bleeding b. Chills, fever c. Burning or frequency of urination d. Pain or redness and breasts if nursing e. Increasing pain or swelling in episiotomy (stitches). In addition to the above instructions, the following additional should be followed: 1. No heavy lifting or straining (exercising) until after 6 week checkup. 2. Keep abdominal incision clean and dry: You may wear a dressing if more comfortable. 3. Make office appointment for 10 days after going home or as instructed by her doctor. Discharge Disposition: HOME SELF-CARE
== END 2023-07-12 13:25 | disposition home or self-care (01) | DRG 560 ==
LOC: 4FBP 05:49
PROVIDERS: ADMIT Obstetrics & Gynecology; ATTEND Obstetrics & Gynecology
PROC: 10E0XZZ Delivery of Products of Conception, External Approach (ICD-10-PCS; principal; 2023-07-10)
PROC: 0KQM0ZZ Repair Perineum Muscle, Open Approach (ICD-10-PCS; 2023-07-10)
PROC: 3E033VJ Introduction of Other Hormone into Peripheral Vein, Percutaneous Approach (ICD-10-PCS; 2023-07-10)
PROC: 10907ZC Drainage of Amniotic Fluid, Therapeutic from Products of Conception, Via Natural or Artificial Opening (ICD-10-PCS; 2023-07-10)
DX: O77.0 Labor and delivery complicated by meconium in amniotic fluid (principal); O70.1 Second degree perineal laceration during delivery; O99.52 Diseases of the respiratory system complicating childbirth; J10.1 Influenza due to other identified influenza virus with other respiratory manifestations; Z37.0 Single live birth; Z3A.39 39 weeks gestation of pregnancy; Z87.891 Personal history of nicotine dependence; Z88.0 Allergy status to penicillin; Z88.5 Allergy status to narcotic agent
CPT/HCPCS: 81001; 82565; 82570; 83605; 83615; 83735; 84156; 84450; 84460; 84520; 84550; 85025; 85384; 85610; 85730; 86850; 86900; 86901; 87040; 87636

== ENCOUNTER 2023-10-21 21:48 | Emergency (ER) | payer OTHER ==
--- NOTE | 2023-10-21 22:21 | ED ---
Female Urogenital HPI - General Source: patient, RN notes reviewed Mode of arrival: ambulatory <Alma Stout - Last Filed: 10/21/23 22:19> - History of Present Illness MD Complaint: vaginal discharge, pelvic pain Onset/Timin -: days(s) Location: suprapubic, LLQ, RLQ Radiation: non-radiating Severity: mild Quality: cramping Consistency: intermittent Improves with: none Worsens with: none Patient : Yes Number of weeks : 6 Associated Symptoms: vaginal bleeding - Related Data : 2 Para: 1 A: 0 <Alexei Jenkins - Last Filed: 10/26/23 05:09> - General Chief complaint: OB/Uterine Contractions Stated complaint: 6 wks preg, bleeding Time Seen by Provider: 10/21/23 22:03 - History of Present Illness Initial comments: Quick noteis a 22-year-old female at roughly 6 weeks gestation who presents to the emergency department chief complaint of abdominal cramping and vaginal bleeding. She states that she began experiencing abdominal cramping on Thursday and today experienced vaginal bleeding while using the restroom. Has not seen OB for this . Denies previous history of spontaneous abortions. (Alma Stout) Patient is woman here to have evaluation for pelvic cramping and today some spotting. Patient states that she started having some intermittent cramping on Thursday. Today when she was urinating she noticed there was pink on the toilet paper when wiping. Denies other symptoms. States that she is to see Dr. Ramirez but has not had any visits yet and no ultrasound. (Alexei Jenkins) - Related Data Home Medications Medication Instructions Recorded Confirmed Vit No.179/Iron/Folic 1 tab PO DAILY 06/01/23 07/10/23 [ Tablet] Previous Rx's Medication Instructions Recorded Ibuprofen [Motrin] 600 mg PO Q6HR PRN #60 tab 07/12/23 Allergies Allergy/AdvReac Type Severity Reaction Status Date / Time amoxicillin Allergy Rash/Hives Verified 10/22/23 15:15 hydrocodone Allergy Vomiting Verified 10/22/23 15:15 Penicillins Allergy Rash/Hives Verified 10/22/23 15:15 Review of Systems ROS Other: All systems not noted in ROS Statement are negative. <Alma Stout - Last Filed: 10/21/23 22:19> ROS Other: All systems not noted in ROS Statement are negative. Constitutional: Denies: fever, chills, weakness Respiratory: Denies: cough, dyspnea Cardiovascular: Denies: chest pain, palpitations Gastrointestinal: Reports: abdominal pain. Denies: nausea, vomiting, diarrhea, constipation Genitourinary: Reports: discharge. Denies: dysuria, frequency, hematuria, abnormal menses Musculoskeletal: Denies: back pain Skin: Denies: rash Neurological: Denies: headache, weakness, numbness Hematological/Lymphatic: Denies: easy bleeding <AliceAlexei - Last Filed: 10/26/23 05:09> ROS Statement: Those systems with pertinent positive or pertinent negative responses have been documented in the HPI. Past Medical History Past Medical History: No Reported History History of Any Multi-Drug Resistant Organisms: None Reported Past Surgical History: Tonsillectomy Additional Past Surgical History / Comment(s): Pilonidal cystectomy Past Anesthesia/Blood Transfusion Reactions: No Reported Reaction Past Psychological History: No Psychological Hx Reported Smoking Status: Former smoker Past Alcohol Use History: None Reported Past Drug Use History: None Reported - Past Family History Father Family Medical History: No Reported History <Ping Stoutoe - Last Filed: 10/21/23 22:19> General Exam <CesarioAlma shankar - Last Filed: 10/21/23 22:19> Limitations: no limitations General appearance: alert, in no apparent distress Head exam: Present: atraumatic, normocephalic Eye exam: Present: normal appearance. Absent: scleral icterus, conjunctival injection ENT exam: Present: normal oropharynx Neck exam: Present: normal inspection Respiratory exam: Present: normal lung sounds bilaterally. Absent: respiratory distress, wheezes, rales, rhonchi, stridor, accessory muscle use Cardiovascular Exam: Present: regular rate, normal rhythm, normal heart sounds. Absent: systolic murmur, diastolic murmur, rubs, gallop GI/Abdominal exam: Present: soft. Absent: distended, tenderness, guarding, rebound, rigid, mass, pulsatile mass, hernia Extremities exam: Present: normal inspection, normal capillary refill. Absent: pedal edema, calf tenderness Back exam: Present: normal inspection. Absent: CVA tenderness (R), CVA tenderness (L) Neurological exam: Present: alert Skin exam: Present: warm, dry, intact, normal color. Absent: rash <Alexei Jenkins - Last Filed: 10/26/23 05:09> - General Exam Comments Initial Comments: Visual Physical Exam Vital signs reviewed General: Well-appearing, nontoxic, no acute distress. Head: Normocephalic, atraumatic Eyes: PERRLA, EOMI ENT: Airway patent Chest: Nonlabored breathing Skin: No visual rash, normal skin tone Neuro: Alert and oriented 3 Musculoskeletal: No gross abnormalities (Alma Stout) Course Vital Signs 10/21/23 10/22/23 10/22/23 22:00 00:33 01:39 Temperature 98.6 F 98.3 F Pulse Rate 90 94 94 Respiratory 16 18 18 Rate Blood Pressure 134/83 90/48 95/46 O2 Sat by Pulse 100 98 99 Oximetry Medical Decision Making <Alma Stout - Last Filed: 10/21/23 22:19> - Lab Data Result diagrams: 10/21/23 22:57 10/21/23 22:57 <Alexei Jenkins - Last Filed: 10/26/23 05:09> - Medical Decision Making I completed the quick note portion of this chart signed Alma Stout PA-C (Alma Stout) I interpreted the ultrasound as showing early intrauterine Was pt. sent in by a medical professional or institution (EZEKIEL Mascorro, PRODUCTION MACHINE SHOP SUPERVISOR, urgent care, hospital, or [facility]...) When possible be specific @ -[No] Did you speak to anyone other than the patient for history (EMS, parent, family, police, friend...)? What history was obtained from this source @ -[No] Did you review nursing and triage notes (agree or disagree)? Why? @ -[I reviewed and agree with nursing and triage notes] Were old charts reviewed (outside hosp., previous admission, EMS record, old EKG, old radiological studies, urgent care reports/EKG's, [facility] records)? Report findings @ -[No old charts were reviewed] Differential Diagnosis (chest pain, altered mental status, abdominal pain women, abdominal pain men, vaginal bleeding, weakness, fever, dyspnea, syncope, headache, dizziness, GI bleed, back pain, seizure, CVA, palpatations, mental health, musculoskeletal)? @ -[Differential Abdominal Pain Women: Appendicitis, Cholecystitis, diverticulosis, ischemic bowel, pancreatitis, hepatitis, UTI, gastroenteritis, AAA, incarcerated hernia, bowel obstruction, constipation, inflammatory bowel, hepatitis, peptic ulcer disease, splenic infarction, perforated viscus, vulvitis, ovarian torsion, PID, kidney stone, placenta abruption, this is not meant to be an all-inclusive list Differential Vaginal Bleeding: Spontaneous , threatened , molar , ectopic , bloody show, incompetent cervix, abruptioplacenta, placenta previa, uterine rupture, dysfunctional uterine bleeding, hemorrhage, uterine fibroids, this is not meant to be an all-inclusive list. EKG interpreted by me (3pts min.). @ -[As above] X-rays interpreted by me (1pt min.). @ -[None done] CT interpreted by me (1pt min.). @ -[None done] U/S interpreted by me (1pt. min.). @ -[I interpreted as above What testing was considered but not performed or refused? (CT, X-rays, U/S, labs)? Why? @ -[None] What meds were considered but not given or refused? Why? @ -[None] Did you discuss the management of the patient with other professionals (professionals i.e. , PA, PRODUCTION MACHINE SHOP SUPERVISOR, lab, RT, psych nurse, social studies teacher, electric meter repairer apprentice, teacher, sheriffs officer, case packer and sealer)? Give summary @ -[No] Was smoking cessation discussed for >3mins.? @ -[No] Was critical care preformed (if so, how long)? @ -[No] Were there social determinants of health that impacted care today? How? (Homelessness, low income, unemployed, alcoholism, drug addiction, transportation, low edu. Level, literacy, decrease access to med. care, assisted, rehab)? @ -[No] Was there de-escalation of care discussed even if they declined (Discuss DNR or withdrawal of care, Hospice)? DNR status @ -[No] What co-morbidities impacted this encounter? (DM, HTN, Smoking, COPD, CAD, Cancer, CVA, ARF, Chemo, Hep., AIDS, mental health diagnosis, sleep apnea, morbid obesity)? @ -[None] Was patient admitted / discharged? Hospital course, mention meds given and route, prescriptions, significant lab abnormalities, going to OR and other pertinent info. @ -[Patient is a 22-year-old woman here with pain and some spotting in early . The patient's workup does show early intrauterine . Given the patient's symptoms she is advised that this may be an impending miscarriage or the bleeding may be due to subchorionic hemorrhage. She is advised to have serial hCG and ultrasound unless all of her symptoms resolved within the next 12 hours. She will return should she have fever, increased pain, increased bleeding, or any other concerning symptoms. Undiagnosed new problem with uncertain prognosis? @ -[No] Drug Therapy requiring intensive monitoring for toxicity (Heparin, Nitro, Insulin, Cardizem)? @ -[No] Were any procedures done? @ -[No] Diagnosis/symptom? @ -[ Acute subchorionic hemorrhage Threatened miscarriage Intrauterine Acute, or Chronic, or Acute on Chronic? @ -[Acute Uncomplicated (without systemic symptoms) or Complicated (systemic symptoms)? @ -[Uncomplicated Side effects of treatment? @ -[No] Exacerbation, Progression, or Severe Exacerbation? @ -[No] Poses a threat to life or bodily function? How? (Chest pain, [place], [place], pneumonia, PE, COPD, DKA, ARF, appy, cholecystitis, CVA, Diverticulitis, Homicidal, Suicidal, threat to staff... and all critical care pts) @ -[No (Alexei Jenkins) - Lab Data Lab Results 10/21/23 10/21/23 10/22/23 Range/Units 22:57 22:57 00:28 WBC 11.7 H (3.8-10.6) k/uL RBC 4.81 (3.80-5.40) m/uL Hgb 11.9 (11.4-16.0) gm/dL Hct 36.9 (34.0-46.0) % MCV 76.7 L (80.0-100.0) fL MCH 24.7 L (25.0-35.0) pg MCHC 32.2 (31.0-37.0) g/dL RDW 16.6 H (11.5-15.5) % Plt Count 365 (150-450) k/uL MPV 7.3 Neutrophils % 72 % Lymphocytes % 20 % Monocytes % 4 % Eosinophils % 2 % Basophils % 1 % Neutrophils # 8.5 H (1.3-7.7) k/uL Lymphocytes # 2.4 (1.0-4.8) k/uL Monocytes # 0.5 (0-1.0) k/uL Eosinophils # 0.2 (0-0.7) k/uL Basophils # 0.1 (0-0.2) k/uL Anisocytosis Slight Microcytosis Slight Sodium 136 L (137-145) mmol/L Potassium 4.3 (3.5-5.1) mmol/L Chloride 106 (98-107) mmol/L Carbon Dioxide 23 (22-30) mmol/L Anion Gap 7 mmol/L BUN 15 (7-17) mg/dL Creatinine 0.55 (0.52-1.04) mg/dL Est GFR (CKD-EPI)AfAm >90 (>60 ml/min/1.73 sqM) Est GFR (CKD-EPI)NonAf >90 (>60 ml/min/1.73 sqM) Glucose 84 (74-99) mg/dL Calcium 8.9 (8.4-10.2) mg/dL Total Bilirubin 0.4 (0.2-1.3) mg/dL AST 31 (14-36) U/L ALT 43 H (4-34) U/L Alkaline Phosphatase 67 (38-126) U/L Total Protein 6.8 (6.3-8.2) g/dL Albumin 4.2 (3.5-5.0) g/dL HCG, Quant 94505.7 mIU/mL Blood Type A Positive Blood Type Recheck A Pos Bld Type Recheck Status ABR ONLY Disposition <Alma Stout - Last Filed: 10/21/23 22:19> Is patient prescribed a controlled substance at d/c from ED?: No <Alexei Jenkins - Last Filed: 10/26/23 05:09> Clinical Impression: Threatened in first trimester Disposition: HOME SELF-CARE Condition: Good Instructions (If sedation given, give patient instructions): Threatened Miscarriage (ED) Referrals: Alea Davenport NPC [REFERRING] - 1-2 days Talia Ramirez DO [Primary Care Provider] - 1-2 days
[2023-10-21 23:02] LABS: Anisocytosis Slight; Basophils # (A) 0.1 k/uL (0-0.2); Basophils % (A) 1 %; Eosinophils # (A) 0.2 k/uL (0-0.7); Eosinophils % (A) 2 %; HCT 36.9 % (34.0-46.0); HGB 11.9 gm/dL (11.4-16.0); Lymphocytes # (A) 2.4 k/uL (1.0-4.8); Lymphocytes % (A) 20 %; MCH 24.7 pg (25.0-35.0); MCHC 32.2 g/dL (31.0-37.0); MCV 76.7 fL (80.0-100.0); Mean Platelet Volume 7.3; Microcytosis Slight; Monocytes # (A) 0.5 k/uL (0-1.0); Monocytes % (A) 4 %; Neutrophils # (A) 8.5 k/uL (1.3-7.7); Neutrophils % (A) 72 %; Platelet Count 365 k/uL (150-450); RBC 4.81 m/uL (3.80-5.40); RDW 16.6 % (11.5-15.5); WBC 11.7 k/uL (3.8-10.6)
[2023-10-21 23:16] LABS: ALT 43 U/L (4-34); AST 31 U/L (14-36); African American GFR (CKD) >90 (>60 ml/min/1.73 sqM); Albumin 4.2 g/dL (3.5-5.0); Alkaline Phosphatase 67 U/L (38-126); Anion Gap 7 mmol/L; Blood Urea Nitrogen 15 mg/dL (7-17); Calcium 8.9 mg/dL (8.4-10.2); Carbon Dioxide 23 mmol/L (22-30); Chloride 106 mmol/L (98-107); Glucose 84 mg/dL (74-99); Non-African American GFR(CKD) >90 (>60 ml/min/1.73 sqM); Potassium 4.3 mmol/L (3.5-5.1); Sodium 136 mmol/L (137-145); Total Bilirubin 0.4 mg/dL (0.2-1.3); Total Protein 6.8 g/dL (6.3-8.2)
[2023-10-22 01:09] VITALS: PULSE 94; RESP 18
--- NOTE | 2023-10-22 01:17 | US ---
EXAM: US Pelvis Transvaginal CLINICAL HISTORY: ITS.REASON US Reason: 6 weeks gestation, vaginal bleeding TECHNIQUE: Real-time transvaginal pelvic ultrasound with image documentation. Transvaginal imaging was used for better evaluation of the endometrium and adnexa. COMPARISON: None FINDINGS: Uterus: Measures 9.6 x 5.8 x 6.7 cm. Gestational sac identified within the endometrial cavity, with mean sac diameter measuring 1.89 cm. Small subchorionic hemorrhage measuring 1.0 x 0.4 cm. Nonspecific avascular echogenic material seen in the gestational sac measuring 1.3 x 1.0 x 0.7 cm. An embryonic pole is identified. Mayo-rump length measures 0.64 cm. heart rate is not obtained on this exam. Cervix is long and closed. Placenta/amniotic fluid: Cannot be adequately evaluated due to the early gestational age. Ovaries: The right ovary measures 1.4 x 2.7 x 1.8 cm. The left ovary measures 3.3 x 4.6 x 3.1 cm. Complex left ovarian cyst or corpus luteum measuring 2.4 x 3.0 x 2.4 cm. The ovaries demonstrate normal color flow. Other: No free fluid is identified. No adnexal mass. GA by prior datin weeks 1 day OBI by prior datin06/07/2024 Average ultrasound age: 6 weeks 3 days OBI by ultrasound: 06/12/2024 IMPRESSION: 1. Single intrauterine with heart rate not detected on this exam. This could be secondary to and patient movement. Please correlate with serial beta hCG measurements and short-term follow- up exam if clinically indicated. 2. Small subchorionic hemorrhage measuring 1.0 x 0.4 cm. 3. Nonspecific avascular echogenic material seen in the gestational sac measuring 1.3 x 1.0 x 0.7 cm.
[2023-10-22 01:35] LABS: HCG,Quantitative Serum 37149.7 mIU/mL
[2023-10-22 02:01] VITALS: BP 95/46; TEMP 98.3
== END 2023-10-22 01:42 | disposition home or self-care (01) ==
LOC: EC 21:48
DX: O20.0 Threatened abortion (principal); O99.331 Smoking (tobacco) complicating pregnancy, first trimester; Z3A.01 Less than 8 weeks gestation of pregnancy; Z87.891 Personal history of nicotine dependence; Z88.0 Allergy status to penicillin; Z88.5 Allergy status to narcotic agent
CPT/HCPCS: 36415; 76801; 76817; 80053; 84702; 85025; 86900; 86901; 99284

== ENCOUNTER 2023-10-22 15:11 | Emergency (ER) | payer OTHER ==
[2023-10-22 15:43] VITALS: PULSE 82; RESP 16; TEMP 98.6
--- NOTE | 2023-10-22 16:25 | ED ---
Female Urogenital HPI - General Chief complaint: Vaginal Bleeding Stated complaint: Vaginal bleeding-6 weeks preg Time Seen by Provider: 10/22/23 15:40 Source: patient, RN notes reviewed Mode of arrival: ambulatory Limitations: no limitations - History of Present Illness Initial comments: 22-year-old female presenting at approximately 6 weeks gestation with vaginal spotting and abdominal cramping. States that she has been having abdominal cramping x 4 days and vaginal spotting began yesterday. Patient was seen here in the ER last night for this where an ultrasound was performed and lab work was taken. At this time patient was sent home and instructed to get repeat beta-hCG in 48 hours. Patient is back because she states the vaginal ble eding is becoming more heavy. Denies any other symptoms such as nausea, vomiting, lightheadedness, syncope, fever. - Related Data Home Medications Medication Instructions Recorded Confirmed Vit No.179/Iron/Folic 1 tab PO DAILY 06/01/23 07/10/23 [ Tablet] Previous Rx's Medication Instructions Recorded Ibuprofen [Motrin] 600 mg PO Q6HR PRN #60 tab 07/12/23 Allergies Allergy/AdvReac Type Severity Reaction Status Date / Time amoxicillin Allergy Rash/Hives Verified 10/22/23 15:15 hydrocodone Allergy Vomiting Verified 10/22/23 15:15 Penicillins Allergy Rash/Hives Verified 10/22/23 15:15 Review of Systems ROS Statement: Those systems with pertinent positive or pertinent negative responses have been documented in the HPI. ROS Other: All systems not noted in ROS Statement are negative. Past Medical History Past Medical History: No Reported History History of Any Multi-Drug Resistant Organisms: None Reported Past Surgical History: Tonsillectomy Additional Past Surgical History / Comment(s): Pilonidal cystectomy Past Anesthesia/Blood Transfusion Reactions: No Reported Reaction Past Psychological History: No Psychological Hx Reported Smoking Status: Former smoker Past Alcohol Use History: None Reported Past Drug Use History: None Reported - Past Family History Father Family Medical History: No Reported History General Exam Limitations: no limitations General appearance: alert, in no apparent distress Respiratory exam: Present: normal lung sounds bilaterally. Absent: respiratory distress, wheezes, rales, rhonchi, stridor Cardiovascular Exam: Present: regular rate, normal rhythm, normal heart sounds. Absent: systolic murmur, diastolic murmur, rubs, gallop, clicks GI/Abdominal exam: Present: soft, normal bowel sounds. Absent: distended, tend erness, guarding, rebound, rigid Psychiatric exam: Present: normal affect, normal mood Skin exam: Present: warm, dry, intact, normal color. Absent: rash Course Vital Signs 10/22/23 10/22/23 15:12 17:42 Temperature 98.6 F Pulse Rate 82 Respiratory 16 16 Rate Blood Pressure 129/79 Blood Pressure 116/65 [Right Arm] O2 Sat by Pulse 98 96 Oximetry Medical Decision Making - Medical Decision Making Was pt. sent in by a medical professional or institution (, PA, SUMMER ASSOCIATE, urgent care, hospital, or custodial...) When possible be specific @ -No Did you speak to anyone other than the patient for history (EMS, parent, family, police, friend...)? What history was obtained from this source @ -No Did you review nursing and triage notes (agree or disagree)? Why? @ -I reviewed and agree with nursing and triage notes Were old charts reviewed (outside hosp., previous admission, EMS record, old EKG, old radiological studies, urgent care reports/EKG's, custodial records)? Report findings @ -Previous ER note from yesterday reviewed including lab work and ultrasound which revealed single intrauterine with heart rate not detected, small subchorionic hemorrhage measuring 1 x 0.4 cm, nonspecific avascular echogenic material seen in gestational sac Differential Diagnosis (chest pain, altered mental status, abdominal pain women, abdominal pain men, vaginal bleeding, weakness, fever, dyspnea, syncope, headache, dizziness, GI bleed, back pain, seizure, CVA, palpatations, mental health, musculoskeletal)? @ -Differential Vaginal Bleeding: Spontaneous , threatened , molar , ectopic , bloody show, incompetent cervix, abruptioplacenta, placenta previa, uterine rupture, dysfunctional uterine bleeding, hemorrhage, uterine fibroids, this is not meant to be an all-inclusive list. EKG interpreted by me (3pts min.). @ -None X-rays interpreted by me (1pt min.). @ -None done CT interpreted by me (1pt min.). @ -None done U/S interpreted by me (1pt. min.). @ -None done What testing was considered but not performed or refused? (CT, X-rays, U/S, labs)? Why? @ -Ultrasound not performed due to patient had ultrasound less than 24 hours ago at recent ER visit for same symptoms. Beta hCG done less than 24 hours ago. What meds were considered but not given or refused? Why? @ -None Did you discuss the management of the patient with other professionals (wei farmer i.e. , PA, SUMMER ASSOCIATE, lab, RT, psych nurse, nursing home social worker, identity access management architect, teacher, correction officer penitentiary, manager case)? Give summary @ -No Was smoking cessation discussed for >3mins.? @ -No Was critical care preformed (if so, how long)? @ -No Were there social determinants of health that impacted care today? How? (Homelessness, low income, unemployed, alcoholism, drug addiction, transportation, low edu. Level, literacy, decrease access to med. care, longterm, rehab)? @ -No Was there de-escalation of care discussed even if they declined (Discuss DNR or withdrawal of care, Hospice)? DNR status @ -No What co-morbidities impacted this encounter? (DM, HTN, Smoking, COPD, CAD, Cancer, CVA, ARF, Chemo, Hep., AIDS, mental health diagnosis, sleep apnea, morbid obesity)? @ -None Was patient admitted / discharged? Hospital course, mention meds given and route, prescriptions, significant lab abnormalities, going to OR and other pertinent info. @ -Patient was discharged. Patient was seen and evaluated for vaginal bleeding at 6 weeks gestation with abdominal cramping. Patient's vitals are stable and examination is unremarkable. Patient was seen for the symptoms last night which revealed unremarkable lab work and an ultrasound that revealed single intrauterine with heart rate not detected, small subchorionic hemorrhage measuring 1 x 0.4 cm, nonspecific avascular echogenic material seen i n gestational sac. CBC repeated and was unremarkable. Discussed diagnosis of threatened with patient. Patient provided with a printed prescription for repeat beta-hCG tomorrow to trend. Advise close DAIRY NUTRITION SPECIALIST follow-up. Strict return/alarm symptoms discussed with patient and she shows understanding and agrees to plan. Patient discharged in stable condition. Case discussed with Dr. Alaniz. Undiagnosed new problem with uncertain prognosis? @ -No Drug Therapy requiring intensive monitoring for toxicity (Heparin, Nitro, Insulin, Cardizem)? @ -No Were any procedures done? @ -No Diagnosis/symptom? @ -Threatened Acute, or Chronic, or Acute on Chronic? @ -Acute Uncomplicated (without systemic symptoms) or Complicated (systemic symptoms)? @ -Uncomplicated Side effects of treatment? @ -No Exacerbation, Progression, or Severe Exacerbation? @ -No Poses a threat to life or bodily function? How? (Chest pain, [place], [place], pneumonia, PE, COPD, DKA, ARF, appy, cholecystitis, CVA, Diverticulitis, Homicidal, Suicidal, threat to staff... and all critical care pts) @ -No - Lab Data Result diagrams: 10/22/23 16:17 Lab Results 10/22/23 Range/Units 16:17 WBC 8.8 (3.8-10.6) k/uL RBC 4.71 (3.80-5.40) m/uL Hgb 11.8 (11.4-16.0) gm/dL Hct 36.8 (34.0-46.0) % MCV 78.1 L (80.0-100.0) fL MCH 25.1 (25.0-35.0) pg MCHC 32.2 (31.0-37.0) g/dL RDW 16.6 H (11.5-15.5) % Plt Count 370 (150-450) k/uL MPV 7.4 Neutrophils % 68 % Lymphocytes % 23 % Monocytes % 5 % Eosinophils % 2 % Basophils % 0 % Neutrophils # 6.0 (1.3-7.7) k/uL Lymphocytes # 2.0 (1.0-4.8) k/uL Monocytes # 0.4 (0-1.0) k/uL Eosinophils # 0.2 (0-0.7) k/uL Basophils # 0.0 (0-0.2) k/uL Anisocytosis Slight Microcytosis Slight Disposition Clinical Impression: Threatened in first trimester Disposition: HOME SELF-CARE Condition: Stable Instructions (If sedation given, give patient instructions): Threatened Miscarriage (ED) Additional Instructions: Follow-up tomorrow for repeat hCG. Please return to the Emergency Department if symptoms worsen or any other concerns. Is patient prescribed a controlled substance at d/c from ED?: No Referrals: Lyle Coronado DO [Primary Care Provider] - 1-2 days Time of Disposition: 17:31
[2023-10-22 16:34] LABS: Anisocytosis Slight; Basophils % (A) 0 %; Eosinophils # (A) 0.2 k/uL (0-0.7); Eosinophils % (A) 2 %; HCT 36.8 % (34.0-46.0); HGB 11.8 gm/dL (11.4-16.0); Lymphocytes % (A) 23 %; MCH 25.1 pg (25.0-35.0); MCHC 32.2 g/dL (31.0-37.0); MCV 78.1 fL (80.0-100.0); Mean Platelet Volume 7.4; Microcytosis Slight; Monocytes # (A) 0.4 k/uL (0-1.0); Monocytes % (A) 5 %; Neutrophils % (A) 68 %; Platelet Count 370 k/uL (150-450); RBC 4.71 m/uL (3.80-5.40); RDW 16.6 % (11.5-15.5); WBC 8.8 k/uL (3.8-10.6)
[2023-10-22 18:03] VITALS: BP 116/65
== END 2023-10-22 17:45 | disposition home or self-care (01) ==
LOC: SUPCPDRO 15:11 → EC 15:11
DX: O20.0 Threatened abortion (principal); Z3A.01 Less than 8 weeks gestation of pregnancy; Z87.891 Personal history of nicotine dependence; Z88.0 Allergy status to penicillin; Z88.5 Allergy status to narcotic agent
CPT/HCPCS: 36415; 85025; 99284

== ENCOUNTER → 2023-10-23 | Outpatient (CLI) | payer OTHER | END | disposition home or self-care (01) | LOC: LABWHC1 16:34 | PROVIDERS: ATTEND Physician Assistant | DX: O20.0 Threatened abortion (principal); Z3A.00 Weeks of gestation of pregnancy not specified | CPT/HCPCS: 36415; 84702 ==

== ENCOUNTER 2024-03-22 22:14 | Outpatient (CLI) | payer OTHER ==
[2024-03-22 23:14] VITALS: BP 133/63; PULSE 116; RESP 16; TEMP 97.9
== END 2024-03-22 22:55 | disposition home or self-care (01) ==
LOC: FBPOP 22:14
PROVIDERS: ATTEND Obstetrics & Gynecology
DX: O26.893 Other specified pregnancy related conditions, third trimester (principal); R03.0 Elevated blood-pressure reading, without diagnosis of hypertension; M79.89 Other specified soft tissue disorders; Z3A.28 28 weeks gestation of pregnancy; Z88.5 Allergy status to narcotic agent; Z88.0 Allergy status to penicillin
CPT/HCPCS: 59025; G0463; 99213

== ENCOUNTER → 2024-09-09 | Outpatient (CLI) | payer SELFPAY ==
--- NOTE | 2024-09-09 19:00 | US ---
EXAMINATION TYPE: US abdomen complete DATE OF EXAM: 09/09/2024 COMPARISON: NONE CLINICAL INDICATION: Female, 23 years old with history of R74.01 ELEVATION OF LEVELS OF LIVER TRANSAM INASE L; elevated liver enzymes limited due body habitus and bowel gas. TECHNIQUE: Grayscale and color Doppler imaging of the abdomen was performed. FINDINGS: EXAM MEASUREMENTS: Liver Length: 18.5 cm Gallbladder Wall: Not visualized. CBD: .4 cm, color Doppler imaging was utilized to isolate the common bile duct for measurement. Spleen: 13.5 cm Right Kidney: 11.5 x 4.2 x 4.8 cm Left Kidney: 10.6 x 4.8 x 4.3 cm Pancreas: Obscured by bowel gas Liver: Limited by attenuation from patient's large body habitus. Gallbladder: SAPPHIRE sign Evidence for sonographic Coats's sign: No CBD: Limited due to bowel gas Spleen: Borderline-enlarged. Right Kidney: wnl, No hydronephrosis, calculi or masses seen Left Kidney: wnl, No hydronephrosis, calculi or masses seen Upper IVC: wnl Abd Aorta: wnl IMPRESSION: 1. Mild hepatomegaly at 18.5 cm. Detailed assessment of the liver is very limited due to large patien t body habitus. 2. Gallbladder imaging demonstrates wall echo shadow complex indicating numerous stones packing the g allbladder lumen. 3. Borderline splenomegaly at 13.5 cm. [facility], Workstation: [email or web address], 09/09/2024 6:58 PM
== END | disposition home or self-care (01) ==
LOC: RADUSWWP 07:27
PROVIDERS: ATTEND Internal Medicine
DX: K80.20 Calculus of gallbladder without cholecystitis without obstruction (principal); R16.2 Hepatomegaly with splenomegaly, not elsewhere classified; R74.01 Elevation of levels of liver transaminase levels
CPT/HCPCS: 76700

== ENCOUNTER 2024-09-20 18:14 | Emergency (ER) | payer OTHER ==
[2024-09-20 18:37] VITALS: RESP 18
--- NOTE | 2024-09-20 19:29 | ED ---
Abdominal Pain HPI - General Source: patient Mode of arrival: ambulatory Limitations: no limitations <Itzel Castorena - Last Filed: 09/20/24 22:14> <Delicia Adair - Last Filed: 09/22/24 10:42> - General Chief Complaint: Abdominal Pain Stated Complaint: Abd pain Time Seen by Provider: 09/20/24 18:57 - History of Present Illness Initial Comments: 24-year-old female presenting with abdominal pain from her PCPs office. Patient reports she was told she had gallstones and needed a cholecystectomy. Patient reports the pain is localized to the left upper quadrant. States she has some nausea. Denies any vomiting. States the pain is colicky and worse with eating. Denies fevers, chills, urinary or bowel complaints. (Itzel Castorena) - Related Data Home Medications Medication Instructions Recorded Confirmed Vit No.179/Iron/Folic 1 tab PO DAILY 06/01/23 03/22/24 [ Tablet] Allergies Allergy/AdvReac Type Severity Reaction Status Date / Time amoxicillin Allergy Rash/Hives Verified 09/20/24 18:37 hydrocodone Allergy Vomiting Verified 09/20/24 18:37 Penicillins Allergy Rash/Hives Verified 09/20/24 18:37 Review of Systems ROS Other: All systems not noted in ROS Statement are negative. Constitutional: Denies: fever, chills ENT: Denies: throat pain Respiratory: Denies: cough, dyspnea Cardiovascular: Denies: chest pain, palpitations Endocrine: Denies: fatigue Gastrointestinal: Reports: abdominal pain, nausea. Denies: vomiting Genitourinary: Denies: urgency, dysuria Skin: Denies: rash, lesions Neurological: Denies: headache, weakness <Itzel Castorena - Last Filed: 09/20/24 22:14> ROS Other: All systems not noted in ROS Statement are negative. <Delicia Adair - Last Filed: 09/22/24 10:42> ROS Statement: Those systems with pertinent positive or pertinent negative responses have been documented in the HPI. Past Medical History Past Medical History: No Reported History History of Any Multi-Drug Resistant Organisms: None Reported Past Surgical History: Tonsillectomy Additional Past Surgical History / Comment(s): Pilonidal cystectomy Past Anesthesia/Blood Transfusion Reactions: No Reported Reaction Past Psychological History: No Psychological Hx Reported Smoking Status: Former smoker - Past Family History Father Family Medical History: No Reported History <Itzel Castorena - Last Filed: 09/20/24 22:14> General Exam Limitations: no limitations General appearance: alert, in no apparent distress Respiratory exam: Present: normal lung sounds bilaterally. Absent: respiratory distress Cardiovascular Exam: Present: regular rate, normal rhythm GI/Abdominal exam: Present: soft, tenderness (Left upper quadrant). Absent: guarding, rebound Back exam: Present: normal inspection, full ROM. Absent: tenderness Neurological exam: Present: alert, oriented X3 Psychiatric exam: Present: normal affect, normal mood Skin exam: Present: warm, dry, intact <Itzel Castorena - Last Filed: 09/20/24 22:14> Course Vital Signs 09/20/24 09/20/24 18:34 22:21 Temperature 98.3 F 97.6 F Pulse Rate 97 72 Respiratory 18 18 Rate Blood Pressure 101/63 119/84 O2 Sat by Pulse 98 98 Oximetry Medical Decision Making - Lab Data Result diagrams: 09/20/24 19:50 09/20/24 19:50 <Itzel Castorena - Last Filed: 09/20/24 22:14> - Lab Data Result diagrams: 09/20/24 19:50 09/20/24 19:50 <Delicia Adair - Last Filed: 09/22/24 10:42> - Medical Decision Making Was pt. sent in by a medical professional or institution (, PA, ADVANCED PRACTICE RN, urgent care, hospital, or assisted...) When possible be specific @ -No Did you speak to anyone other than the patient for history (EMS, parent, family, police, friend...)? What history was obtained from this source @ -No Did you review nursing and triage notes (agree or disagree)? Why? @ -I reviewed and agree with nursing and triage notes Were old charts reviewed (outside hosp., previous admission, EMS record, old EKG, old radiological studies, urgent care reports/EKG's, assisted records)? Report findings @ -No old charts were reviewed Differential Diagnosis? @ -Differential Abdominal Pain Women: Appendicitis, Cholecystitis, diverticulosis, ischemic bowel, pancreatitis, hepatitis, UTI, gastroenteritis, AAA, incarcerated hernia, bowel obstruction, constipation, inflammatory bowel, hepatitis, peptic ulcer disease, splenic infarction, perforated viscus, vulvitis, ovarian torsion, PID, kidney stone, placenta abruption, this is not meant to be an all-inclusive list EKG interpreted by me (3pts min.). @ -As above X-rays interpreted by me (1pt min.). @ -KUB was unremarkable. CT interpreted by me (1pt min.). @ -None done U/S interpreted by me (1pt. min.). @ -Gallbladder ultrasound showed cholelithiasis with multiple stones, no acute cholecystitis. What testing was considered but not performed or refused? (CT, X-rays, U/S, labs)? Why? @ -None What meds were considered but not given or refused? Why? @ -None Did you discuss the management of the patient with other professionals (professionals i.e. , PA, ADVANCED PRACTICE RN, lab, RT, psych nurse, social sciences lecturer, pediatric intensive physician, teacher, chief credit officer, case management specialist)? Give summary @ -Case was discussed with ED attending physician Dr. Adair. Was smoking cessation discussed for >3mins.? @ -No Was critical care preformed (if so, how long)? @ -No Were there social determinants of health that impacted care today? How? (Homelessness, low income, unemployed, alcoholism, drug addiction, transportation, low edu. Level, literacy, decrease access to med. care, prison, rehab)? @ -No Was there de-escalation of care discussed even if they declined (Discuss DNR or withdrawal of care, Hospice)? DNR status @ -No What co-morbidities impacted this encounter? (DM, HTN, Smoking, COPD, CAD, Can cer, CVA, ARF, Chemo, Hep., AIDS, mental health diagnosis, sleep apnea, morbid obesity)? @ -None Was patient admitted / discharged? Hospital course, mention meds given and route, prescriptions, significant lab abnormalities, going to OR and other pertinent info. @ -Patient will be discharged home with self-care. Return precautions discussed. Patient to follow-up with PCP in 1 to 2 days. Patient to follow-up with surgery outpatient. Undiagnosed new problem with uncertain prognosis? @ -No Drug Therapy requiring intensive monitoring for toxicity (Heparin, Nitro, Insulin, Cardizem)? @ -No Were any procedures done? @ -No Diagnosis/symptom? @ -Choledocholithiasis Acute, or Chronic, or Acute on Chronic? @ -Acute Uncomplicated (without systemic symptoms) or Complicated (systemic symptoms)? @ -Default Side effects of treatment? @ -No Exacerbation, Progression, or Severe Exacerbation? @ -No Poses a threat to life or bodily function? How? (Chest pain, [place], [place], pneumonia, PE, COPD, DKA, ARF, appy, cholecystitis, CVA, Diverticulitis, Homicidal, Suicidal, threat to staff... and all critical care pts) @ -No (Itzel Castorena) I personally saw the patient and performed the critical portion of the service. I discussed the patient care with the resident physician. I directed management, care planning and final disposition of the patient. This includes, but not limited to, review of all lab work, radiological studies, EKG's, consultations, vital signs, and nursing notes. EKG interpreted by me (3pts min.) @As above X-Rays interpreted by me (1 pt min.) @I personally reviewed, I see no evidence of bowel obstruction I agree with radiologist interpretation CT interpreted by me ( 1pt min.) @None U/S interpreted by me (1 pt min.) @I personally reviewed ultrasound, I do not see evidence of hydronephrosis, common bile duct does not appear dilated, no gallbladder wall thickening I agree with radiologist interpretation Critical care time of 0 minutes excluding separately billable procedures was spent in conjunction with critical care activities provided by the Resident and Attending simultaneously. I was present during no procedures for all critical portions of the procedure and as immediately available to furnish service during the entire procedure. (Delicia Adair) - Lab Data Lab Results 09/20/24 09/20/24 09/20/24 Range/Units 19:50 19:50 19:50 WBC 9.33 (4.50-10.00) 10*3/uL RBC 4.85 (4.10-5.20) 10*6/uL Hgb 11.2 L (12.0-15.0) g/dL Hct 35.6 L (37.2-46.3) % MCV 73.4 L (80.0-97.0) fL MCH 23.1 L (27.0-32.0) pg MCHC 31.5 L (32.0-37.0) g/dL Plt Count 378 (140-440) 10*3/uL MPV 10.0 (9.5-12.2) fL Immature Gran % (Auto) 0.2 % Neutrophils % 63.7 % Lymphocytes % 28.3 % Monocytes % 6.3 % Eosinophils % 1.1 % Basophils % 0.4 % Immature Gran # 0.02 (0.00-0.04) 10*3/uL Neutrophils # 5.94 (1.80-7.70) 10*3/uL Lymphocytes # 2.64 (0.90-5.00) 10*3/uL Monocytes # 0.59 (0.20-1.00) 10*3/uL Eosinophils # 0.10 (0.04-0.35) 10*3/uL Basophils # 0.04 (0.00-0.10) 10*3/uL Sodium (137-145) mmol/L Potassium (3.5-5.1) mmol/L Chloride (98-107) mmol/L Carbon Dioxide (22-30) mmol/L Anion Gap mmol/L BUN (7-17) mg/dL Creatinine (0.52-1.04) mg/dL Est GFR (CKD-EPI)AfAm (>60 ml/min/1.73 sqM) Est GFR (CKD-EPI)NonAf (>60 ml/min/1.73 sqM) Glucose (74-99) mg/dL Plasma Lactic Acid Jonathan (0.7-2.0) mmol/L Calcium (8.4-10.2) mg/dL Total Bilirubin (0.2-1.3) mg/dL AST (14-36) U/L ALT (4-34) U/L Alkaline Phosphatase (38-126) U/L Total Protein (6.3-8.2) g/dL Albumin (3.5-5.0) g/dL Amylase (30-110) U/L Lipase (23-300) U/L Urine Color Yellow Urine Appearance Cloudy H (Clear) Urine pH 7.0 (5.0-8.0) Ur Specific [place] 1.031 (1.001-1.035) Urine Protein Trace H (Negative) Urine Glucose (UA) Negative (Negative) Urine Ketones Negative (Negative) Urine Blood Moderate H (Negative) Urine Nitrite Negative (Negative) Urine Bilirubin Negative (Negative) Urine Urobilinogen <2.0 (<2.0) mg/dL Ur Leukocyte Esterase Large H (Negative) Urine RBC 14 H (0-5) /hpf Urine WBC 43 H (0-5) /hpf Ur Squamous Epith Cells 11 H (0-4) /hpf Urine Mucus Rare H (None) /hpf Urine HCG, Qual Not Detected (Not Detectd) 09/20/24 09/20/24 Range/Units 19:50 19:50 WBC (4.50-10.00) 10*3/uL RBC (4.10-5.20) 10*6/uL Hgb (12.0-15.0) g/dL Hct (37.2-46.3) % MCV (80.0-97.0) fL MCH (27.0-32.0) pg MCHC (32.0-37.0) g/dL Plt Count (140-440) 10*3/uL MPV (9.5-12.2) fL Immature Gran % (Auto) % Neutrophils % % Lymphocytes % % Monocytes % % Eosinophils % % Basophils % % Immature Gran # (0.00-0.04) 10*3/uL Neutrophils # (1.80-7.70) 10*3/uL Lymphocytes # (0.90-5.00) 10*3/uL Monocytes # (0.20-1.00) 10*3/uL Eosinophils # (0.04-0.35) 10*3/uL Basophils # (0.00-0.10) 10*3/uL Sodium 140 (137-145) mmol/L Potassium 3.9 (3.5-5.1) mmol/L Chloride 107 (98-107) mmol/L Carbon Dioxide 25 (22-30) mmol/L Anion Gap 8 mmol/L BUN 15 (7-17) mg/dL Creatinine 0.78 (0.52-1.04) mg/dL Est GFR (CKD-EPI)AfAm >90 (>60 ml/min/1.73 sqM) Est GFR (CKD-EPI)NonAf >90 (>60 ml/min/1.73 sqM) Glucose 86 (74-99) mg/dL Plasma Lactic Acid Jonathan 0.7 (0.7-2.0) mmol/L Calcium 9.5 (8.4-10.2) mg/dL Total Bilirubin 0.5 (0.2-1.3) mg/dL AST 20 (14-36) U/L ALT 33 (4-34) U/L Alkaline Phosphatase 81 (38-126) U/L Total Protein 6.9 (6.3-8.2) g/dL Albumin 4.1 (3.5-5.0) g/dL Amylase 55 (30-110) U/L Lipase 102 (23-300) U/L Urine Color Urine Appearance (Clear) Urine pH (5.0-8.0) Ur Specific [place] (1.001-1.035) Urine Protein (Negative) Urine Glucose (UA) (Negative) Urine Ketones (Negative) Urine Blood (Negative) Urine Nitrite (Negative) Urine Bilirubin (Negative) Urine Urobilinogen (<2.0) mg/dL Ur Leukocyte Esterase (Negative) Urine RBC (0-5) /hpf Urine WBC (0-5) /hpf Ur Squamous Epith Cells (0-4) /hpf Urine Mucus (None) /hpf Urine HCG, Qual (Not Detectd) Disposition Is patient prescribed a controlled substance at d/c from ED?: No <Itzel Castorena - Last Filed: 09/20/24 22:14> Is patient prescribed a controlled substance at d/c from ED?: No <Delicia Adair - Last Filed: 09/22/24 10:42> Clinical Impression: Choledocholithiasis Disposition: HOME SELF-CARE Condition: Good Instructions (If sedation given, give patient instructions): Biliary Colic (ED), Gallstones (ED) Additional Instructions: Every disease is a spectrum and a small chance still exists that a serious condition could develop, for this reason, please monitor yourself closely for new, changing or worsening symptoms, uncontrollable pain, if you notice yellowing of your skin or eyes,, fever, inability to tolerate/keep down fluids or your medications, inability to follow up with outpatient providers as instructed and should you experience these symptoms or should you have any further concerns for your wellbeing please return to the ED or call 911 immediately. Your pain can be treated with ibuprofen and acetaminophen. You can take up to 400-600 mg of ibuprofen (Advil, Motrin) 3 times daily (every 8 hours) but can also use lower doses if this relieves your pain. Some people prefer naproxen (Aleve, Naprosyn) which can be taken in doses of 500 mg up to twice a day. Do not take both of these medicines together, and do not combine either with ketorolac (Toradol), meloxicam (Mobic), or indomethacin (Tivorbex). Some people can develop stomach discomfort with higher doses of either ibuprofen or naproxen, if this develops decrease your dose or stop taking it. If you need to take this dose daily for more than a week, please schedule an appointment for re-evaluation with your PCP. Please take these medications with food. You can take up to 1000 mg of acetaminophen (Tylenol) every 6 hours. Be careful as this is included in some medicines like Nyquil, [place], Percocet, Vicodin, STANBACK, Goody's Powders, and Excedrin. You can also use lidocaine patches for topical pain. You can purchase 4% patches over the counter at most drug stores. These can be helpful for pain from your muscles or bones. Please follow-up with your general surgeon or listed general surgeon as soon as possible for further evaluation. PLEASE call your primary care physician as soon as possible to arrange / discuss plan for followup appointment. Appointment in the next 1-3 days is strongly encouraged if possible. PLEASE let us know here before you leave if there is anything further we can do to be of any assistance. Take care and feel Better! Referrals: Lyle Coronado DO [Primary Care Provider] - 1-2 days Clarence Jansen DO [Doctor of Osteopathic Medicine] - 1-2 days
[2024-09-20] MEDS: KETOROLAC 15 MG/ML 1 ML VIAL IVP STA (19:51)
[2024-09-20 20:03] LABS: Basophils # (A) 0.04 10*3/uL (0.00-0.10); Basophils % (A) 0.4 %; Eosinophils % (A) 1.1 %; HCT 35.6 % (37.2-46.3); HGB 11.2 g/dL (12.0-15.0); Lymphocytes # (A) 2.64 10*3/uL (0.90-5.00); Lymphocytes % (A) 28.3 %; MCH 23.1 pg (27.0-32.0); MCHC 31.5 g/dL (32.0-37.0); MCV 73.4 fL (80.0-97.0); Monocytes # (A) 0.59 10*3/uL (0.20-1.00); Monocytes % (A) 6.3 %; Neutrophils # (A) 5.94 10*3/uL (1.80-7.70); Neutrophils % (A) 63.7 %; Platelet Count 378 10*3/uL (140-440); RBC 4.85 10*6/uL (4.10-5.20); RDW 17.8 % (11.5-14.5); WBC 9.33 10*3/uL (4.50-10.00)
[2024-09-20 20:08] LABS: Appearance,Urine Cloudy (Clear); Bilirubin,Urine Negative (Negative); Blood,Urine Moderate (Negative); Color,Urine Yellow; Glucose,Urine (UA) Negative (Negative); Ketones,Urine Negative (Negative); Leukocyte Esterase,Urine Large (Negative); Mucus,Urine Rare /hpf; Nitrite,Urine Negative (Negative); Protein,Urine Trace (Negative); RBC,Urine 14 /hpf (0-5); Specific Gravity,Urine 1.031 (1.001-1.035); Squamous Epithelial Cell,Urine 11 /hpf (0-4); Urobilinogen,Urine <2.0 mg/dL (<2.0); WBC,Urine 43 /hpf (0-5)
[2024-09-20 20:18] LABS: ALT 33 U/L (4-34); AST 20 U/L (14-36); African American GFR (CKD) >90 (>60 ml/min/1.73 sqM); Albumin 4.1 g/dL (3.5-5.0); Alkaline Phosphatase 81 U/L (38-126); Amylase 55 U/L (30-110); Anion Gap 8 mmol/L; Blood Urea Nitrogen 15 mg/dL (7-17); Calcium 9.5 mg/dL (8.4-10.2); Carbon Dioxide 25 mmol/L (22-30); Chloride 107 mmol/L (98-107); Glucose 86 mg/dL (74-99); Lipase 102 U/L (23-300); Non-African American GFR(CKD) >90 (>60 ml/min/1.73 sqM); Potassium 3.9 mmol/L (3.5-5.1); Sodium 140 mmol/L (137-145); Total Bilirubin 0.5 mg/dL (0.2-1.3); Total Protein 6.9 g/dL (6.3-8.2)
--- NOTE | 2024-09-20 20:34 | XR ---
EXAMINATION TYPE: XR KUB DATE OF EXAM: 09/20/2024 COMPARISON: NONE HISTORY: Pain TECHNIQUE: Single upright KUB image of the abdomen is obtained FINDINGS: Small bowel demonstrates no evidence for dilatation or air fluid levels. Gas and fecal material is seen in non-distended colon. No convincing evidence for pneumoperitoneum. No unusual calcifications. IUD is present within the pelvis. The lung bases are clear. The osseous structures are intact. IMPRESSION: Overall nonobstructive bowel gas pattern. [facility], , 09/20/2024 8:32 PM
--- NOTE | 2024-09-20 21:38 | US ---
EXAMINATION TYPE: US gallbladder DATE OF EXAM: 09/20/2024 COMPARISON: Abdominal ultrasound 09/09/24 CLINICAL INDICATION: Female, 23 years old with history of RUQ pain; patient states worsening RUQ pain . known gallstones TECHNIQUE: Grayscale and color Doppler imaging of the right upper quadrant was performed. FINDINGS: EXAM MEASUREMENTS: Liver Length: 17.1 cm Gallbladder Wall: 0.2 cm CBD: 0.5 cm Right Kidney: 12.3 x 4.7 x 5.6 cm SHIP WIRER NOTES:slightly limited due to overlying gas and pt body habitus Pancreas: Obscured by bowel gas Liver: increased echogenicity, enlarged Gallbladder: SAPPHIRE sign again seen. wall wnl Evidence for sonographic Coats's sign: no CBD: wnl Right Kidney: wnl The pancreas is obscured by overlying bowel gas. The liver is prominent in size with diffusely increa sed echogenicity. No surface nodularity. No focal lesion identified. The gallbladder is full of galls tones with wall echo shadow sign demonstrated. No surrounding fluid or wall thickening. Negative sono graphic Coats's sign. Common bile duct is within normal limits. Right kidney demonstrates no solid m ass, shadowing calculus or hydronephrosis. IMPRESSION: Slightly limited examination due to patient's body habitus and overlying bowel gas. 1. No ultrasound evidence for acute process. 2. Cholelithiasis with multiple stones packing the gallbladder again. No ultrasound evidence for acut e cholecystitis. 3. Hepatic steatosis. [facility], , 09/20/2024 9:36 PM
[2024-09-20 22:22] VITALS: BP 119/84; PULSE 72; TEMP 97.6
== END 2024-09-20 22:22 | disposition home or self-care (01) ==
LOC: EC 18:14
DX: K80.70 Calculus of gallbladder and bile duct without cholecystitis without obstruction (principal); Z87.891 Personal history of nicotine dependence; Z88.0 Allergy status to penicillin; Z88.5 Allergy status to narcotic agent
CPT/HCPCS: 36415; 80053; 82150; 83605; 83690; 85025; 81001; 81025; 87086; 74018; 76705; 99284; 96374; J1885